=== PATIENT | female | born 1970 | race Caucasian/White ===

== ENCOUNTER 2022-01-30 11:16 | Outpatient (CLI) | payer BC, SELFPAY ==
--- NOTE | 2022-01-30 11:15 | CRLHL7_ITS ---
For Patients: As a result of the Century Cures Act, medical imaging exams and procedure reports are released immediately into your electronic medical record. You may view this report before your referring provider. If you have questions, please contact your health care provider. CLINICAL HISTORY: : Left axillary pain COMPARISON: None TECHNIQUE: Real-time ultrasound imaging of left axilla with imaging documentation. FINDINGS: Targeted sonogram left axilla performed. Multiple morphologically normal lymph nodes are present within the left axilla containing normal central fatty delon and normal internal vascularity. The hypoechoic cortex is thin measuring less than 3 millimeters. No suspicious lymph nodes are present. The lymph nodes measure up to 2.4 x 1.2 x 2.6 cm. IMPRESSION: Multiple morphologically normal lymph nodes within the left axilla without suspicion for malignancy. Given the history of left axillary pain and left hip pain with negative targeted left axillary ultrasound and negative radiographs of the pelvis and left hip, a CT-PET scan may be useful in the setting of prior breast cancer. RECOMMENDATIONS: Results and recommendations were discussed with the patient at the time of the exam. BI-RADS: Dictated by Steven Aguirre MD @ 01/30/2022 12:12:17 PM (Electronically Signed)
--- NOTE | 2022-01-30 12:00 | CRLHL7_ITS ---
For Patients: As a result of the Cures Act, medical imaging exams and procedure reports are released immediately into your electronic medical record. You may view this report before your referring provider. If you have questions, please contact your health care provider. Indication: Hip pain Technique: Pelvis and left hip 3 views Comparison: None Findings: Spurring at the left hip joint noted. Incidental synovial herniation pit noted within the superolateral femoral neck related to degenerative joint disease/chronic impingement. Spurring at the symphysis pubis. Intact sacroiliac joints. No suspicious lesion. No periostitis or fracture. Impression: Degenerative joint disease. No fracture or suspicious lesion. Dictated by Steven Aguirre MD @ 01/30/2022 12:08:59 PM (Electronically Signed)
== END 2022-01-30 11:17 | disposition home or self-care (01) ==
LOC: US 11:16
PROVIDERS: PCP Family Medicine; Visit Provider Nurse Practitioner Family
DX: M25.552 Pain in left hip (principal); M16.12 Unilateral primary osteoarthritis, left hip; M79.622 Pain in left upper arm; Z85.3 Personal history of malignant neoplasm of breast
CPT/HCPCS: 73502; 76882

== ENCOUNTER 2022-02-10 19:08 | Emergency (ER) | payer BC, SELFPAY ==
[2022-02-10 20:00] VITALS: BP 136/66; PULSE 113; RESP 20; TEMP 37.4; O2SAT 97; BMI 32.6
[2022-02-10 20:12] LABS: Appearance Urine Clear (Clear); Bilirubin Urine Negative (Negative); Blood Urine Negative (Negative); Color Urine Yellow (Yellow); Glucose Urine Negative (Negative); Ketones Urine Trace (Negative); Leukocyte Esterase Urine Negative (Negative); Nitrite Urine Negative (Negative); Protein Urine Negative (Negative); Specific Gravity Urine >= 1.030 (1.000-1.030); Urobilinogen Urine 0.2 (0.2-1.0); pH Urine 5.5 (5.0-8.5)
[2022-02-10 20:36] LABS: Bacteria Urine Moderate; Squamous Epithelial Cell Urine Moderate (None-Few)
[2022-02-10 20:49] LABS: PCR FLU A Negative PCR FLU A (Negative); PCR FLU B Negative PCR FLU B (Negative); PCR RSV Negative PCR RSV (Negative)
--- NOTE | 2022-02-10 20:53 | ED_ITS ---
HPI - Fever General Time Seen by Provider: 20:53 Date Seen: 02/10/22 Chief Complaint: Fever Stated Complaint: Lower back pain, Temp 102 Time Seen by Provider: 02/10/22 20:51 Source: patient, RN notes reviewed and old records reviewed Mode of arrival: ambulatory Limitations: no limitations History of Present Illness HPI Narrative: Julianna is a very pleasant 52-year-old female with a history of frequent UTI, breast cancer comes to the emergency room for evaluation regarding low back pain in fever. Patient notes that she experienced the onset of some low back dis comfort last night and thought this was likely from bladder infection which she gets frequently. However, she states today she has full body aches at this time. She states that she is absolutely exhausted is they have been standing visual by her father side and he last night. Today she is quite exhausted and states that she is very run down. This evening she started running a fever up to 103. She did take ibuprofen prior to coming into the ER. She notes pain in her low back. She does states that she has had urine infections in the past that did not necessarily show up on a urine test. Patient has not been coughing but does complain of a mild sore throat and bilateral ear pain. She has not had a runny nose. She has not had vomiting or diarrhea. She is vaccinated against COVID. Related Data Home Medications Medication Instructions Recorded Confirmed albuterol 90 mcg/actuation aerosol mcg inhalation PRN 01/19/22 01/19/22 inhaler fluticasone propionate 50 1 spray intranasal QDAY 01/19/22 02/10/22 mcg/actuation nasal spray,suspension (Flonase Allergy Relief) levothyroxine 100 mcg capsule 100 mcg PO QDAY 01/19/22 01/19/22 oxybutynin chloride 5 mg tablet 5 mg PO BID 01/19/22 02/10/22 quetiapine 25 mg tablet (Seroquel) 25 mg PO QAM 01/19/22 02/10/22 quetiapine 400 mg tablet (Seroquel) 400 mg PO QHS 01/19/22 02/10/22 spironolactone 25 mg tablet 50 mg PO QDAY 01/19/22 01/19/22 valacyclovir 1 gram tablet 1,000 mg PO QDAY PRN 01/19/22 01/19/22 albuterol sulfate 90 mcg/actuation 2 inh inhalation Q6H PRN 02/10/22 02/10/22 aerosol inhaler bupropion HCl 150 mg 24 hr tablet, 150 mg PO QAM 02/10/22 02/10/22 extended release cetirizine 10 mg tablet (24Hour 10 mg PO DAILY PRN 02/10/22 02/10/22 Allergy) escitalopram oxalate 20 mg tablet 20 mg PO DAILY 02/10/22 02/10/22 (Lexapro) levothyroxine 88 mcg tablet 88 mcg PO QAM 02/10/22 02/10/22 lorazepam 1 mg tablet 1 mg PO DAILY PRN 02/10/22 02/10/22 naltrexone 50 mg tablet 25 mg PO DAILY 02/10/22 02/10/22 pantoprazole 40 mg tablet,delayed 40 mg PO DAILY 02/10/22 02/10/22 release (Protonix) phentermine 37.5 mg tablet 37.5 mg PO DAILY 02/10/22 02/10/22 (Adipex-P) semaglutide 0.25 mg or 0.5 mg (2 0.25 mg subcut QWEEK 02/10/22 02/10/22 mg/1.5 mL) subcutaneous pen injector (Ozempic) spironolactone 50 mg tablet 50 mg PO DAILY 02/10/22 02/10/22 (Aldactone) valacyclovir 1 gram tablet 2,000 mg PO BID 02/10/22 02/10/22 (Valtrex) Previous Rx's Medication Instructions Recorded ciprofloxacin HCl 500 mg tablet 500 mg PO BID #10 tabs 01/19/22 fluconazole 150 mg tablet 150 mg PO DAILY 1 dose #2 tabs 02/10/22 (Diflucan) nirmatrelvir 300 mg (150 mg See Rx Instructions PO .COMPLEX 02/10/22 x2)-ritonavir 100 mg tablet,dose #30 ea pack(EUA) (Paxlovid) Allergies Allergy/AdvReac Type Severity Reaction Status Date / Time Quinolones Allergy Severe Hives Verified 01/19/22 15:12 sulfamethoxazole Allergy Severe Hives Verified 02/10/22 21:03 [From Bactrim] trimethoprim [From Bactrim] Allergy Severe Hives Verified 02/10/22 21:03 Sulfa (Sulfonamide Allergy Intermediate Hives Verified 02/10/22 21:03 Antibiotics) ciprofloxacin [From Cipro] Allergy Mild Hives Verified 02/10/22 21:03 Quinazolinones Allergy Mild Hives Verified 02/10/22 21:03 amoxicillin [From Augmentin] AdvReac Mild yeast Verified 02/10/22 21:03 infection clavulanic acid AdvReac Mild yeast Verified 02/10/22 21:03 [From Augmentin] infection hydrocodone AdvReac Mild Nausea Verified 02/10/22 21:03 morphine AdvReac Mild Nausea Verified 02/10/22 21:03 Review of Systems Status of ROS Reports: 6 or more systems reviewed and unremarkable except as noted in History and below Const Reports: fever, chills and fatigue ENMT Reports: throat pain (Mild); Denies: neck pain, throat swelling or difficulty swallowing Cardio Denies: chest pain, swelling of feet/ankles or shortness of breath with exertion Resp Denies: shortness of breath or cough GI Reports: nausea and vomiting; Denies: abdominal pain or difficulty swallowing Denies: painful urination, urinary frequency or urinary urgency Musculo Denies: neck pain Endo Reports: fatigue Allergy/Immuno Denies: throat swelling PFSH PFSH Medical History (Updated 02/10/22 @ 22:24 by Brandee Ray, ARLYN) Anxiety Asthma Benign lipomatous neoplasm of kidney Benign neoplasm of colon Bipolar disorder, unspecified Bulge of lumbar disc without myelopathy Cancer CHEK2-related breast cancer Depression GERD (gastroesophageal reflux disease) Graves disease Lateral epicondylitis of right elbow Mastitis Positive SYLVIA (antinuclear antibody) Pulmonary nodules Pyelonephritis Sarcoidosis of lung Surgical History (Updated 02/10/22 @ 22:24 by Brandee Ray RN) H/O bilateral mastectomy H/O nasal septoplasty H/O: hysterectomy History of removal of calculus of renal pelvis through percutaneous nephrostomy History of salpingo-oophorectomy Hx of cholecystectomy S/P silicone breast implant Exam Narrative Exam Narrative: Patient is alert and oriented. She is lying on her side in exam room 7. Her eyes are clear as his her oral cavity Goran. Posterior oropharynx without erythema. Right TM within normal limits. Left TM is with some erythema and some slight bulging at the posterior superior aspect. Neck is supple without lymphadenopathy heart with regular rate and rhythm lungs are clear in all lung jin abdomen is soft nontender no significant point tenderness noted in the lower spine. Moving all extremities. Const Vital Signs, click to edit/add: Vital Signs - 24 hr 02/10/22 20:00 02/10/22 21:19 Temperature 99.3 F 101.8 F H Pulse Rate [Left Pulse Oximeter] 113 H Respiratory Rate 20 Blood Pressure [Right Upper Arm] 136/66 Pulse Oximetry 97 Oxygen Delivery Method Room Air Documenting provider has reviewed patient's vital signs: yes Course Vital Signs Vital signs: Initial Vital Signs Temperature 99.3 F 02/10/22 20:00 Temperature Source Temporal Artery Scan 02/10/22 20:00 Pulse Rate 113 H 02/10/22 20:00 Respiratory Rate 20 02/10/22 20:00 Blood Pressure 136/66 02/10/22 20:00 Blood Pressure Mean 89 02/10/22 20:00 Blood Pressure Position Sitting 02/10/22 20:00 Pulse Oximetry 97 02/10/22 20:00 Oxygen Delivery Method 02/10/22 20:00 Vital Signs Temperature 99.3 F 02/10/22 20:00 Pulse Rate 113 H 02/10/22 20:00 Respiratory Rate 20 02/10/22 20:00 Blood Pressure 136/66 02/10/22 20:00 Pulse Oximetry 97 02/10/22 20:00 Oxygen Delivery Method 02/10/22 20:00 Temperature 101.8 F H 02/10/22 21:19 Pulse Rate 113 H 02/10/22 20:00 Respiratory Rate 20 02/10/22 20:00 Blood Pressure 136/66 02/10/22 20:00 Pulse Oximetry 97 02/10/22 20:00 Oxygen Delivery Method 02/10/22 20:00 MDM - Fever MDM Narrative Medical decision making narrative: 1. COVID-patient has no hypoxia but does have a cough. At this time she is within treating guidelines for Paxlovid. Did cross reference it with her medications and she will need to discontinue Seraquel as well as oxybutynin tonight. She will not restart these medications until 3 days have passed since her last dose of the antiviral. Patient is informed that she will need to try to sleep on her side or prone. She does have a history of asthma but lung sounds are clear tonight and oxygenation is reassuring. She will need to be quarantine for 5 days but may return to work on WednesdayFebruary 16 wearing a mask for the subsequent 4 days if she has improvement of her symptoms. 2. Left otitis media-will treat with Augmentin 875 p.o. b.i.d. x7 days. 3. Back pain-I do believe this most likely stems from COVID but patient is worried that she has a urinary tract infection as she has felt this way before. I did include sure her that augmented would also work on a UTI but we will await the culture. 4. Disposition-prior to discharge patient received Toradol 30 mg IM for discomfort. Would recommend continuing Tylenol ibuprofen as needed for pain. Course worsening symptoms she will need to return to the emergency room. Medical Records Attestation: I reviewed the patient's medical records. Lab Data Attestation: I reviewed the patient's lab results. Labs: Lab Results 02/10/22 02/10/22 Range/Units 20:04 20:04 Urine Color Yellow (Yellow) Urine Appearance Clear (Clear) Urine pH 5.5 (5.0-8.5) Ur Specific [place] >= 1.030 (1.000-1.030) Urine Protein Negative (Negative) Urine Glucose (UA) Negative (Negative) Urine Ketones Trace A (Negative) Urine Blood Negative (Negative) Urine Nitrite Negative (Negative) Urine Bilirubin Negative (Negative) Urine Urobilinogen 0.2 (0.2-1.0) Ur Leukocyte Esterase Negative (Negative) Urine RBC 2-5 A (0-2) Urine WBC 2-5 (0-5) Ur Squamous Epith Cells Moderate A (None-Few) Urine Bacteria Moderate A (None) SARS-CoV-2 (PCR) POSITIVE SARS-CoV-2 A (Negative) Influenza Type A (PCR) Negative PCR FLU A (Negative) Influenza Type B (PCR) Negative PCR FLU B (Negative) RSV (PCR) Negative PCR RSV (Negative) Discharge Plan Discharge Clinical Impression: Acute left otitis media, COVID Patient Disposition: Home, Self-Care Condition: Improved Instructions: COVID-19 (Coronavirus Disease 2019) (ED) Additional Instructions: 1. COVID-suggest use of Paxlovid for treatment of COVID. This is an antiviral medication. It may leave a bad taste in your mouth. You should note improvement of your symptoms in the next 48 hours. If you are having a hard time breathing, vomiting and dehydration please return for further evaluation. You were quarantine for 5 days. Thereafter may return to work for an additional 5 days of masking. This is only if your symptoms are improving. 2. Ear infection-we will use Augmentin for treatment of your ear infection. I will put this in instant meds. This should also cover any urine infection although I do not think there is an infection today. However, I will send your urine for a culture. 3. Return to the emergency room with difficulty breathing. Recommend sleeping on your side or on your stomach. Alternate ibuprofen and Tylenol as needed for discomfort. Rest and push fluids. Stop your Seroquel, oxybutynin, valacyclovir now. Do not resume any of these medications until 3 days have passed after your last dose of Paxlovid Prescriptions: New fluconazole [Diflucan] 150 mg tablet 150 mg PO DAILY Qty: 2 0RF Rx Instructions: Take 1 tablet as needed for yeast infection from antibiotics. Two doses are available to you. Paxlovid (EUA) 300 mg (150 mg x 2)-100 mg tablets,dose pack See Rx Instructions .ROUTE .COMPLEX Qty: 30 0RF Rx Instructions: take TWO 150 mg tablets of nirmatrelvir with ONE 100 mg tablet of ritonavir twice daily for 5 days No Action albuterol 90 mcg/actuation aerosol inhalation PRN levothyroxine 100 mcg capsule 100 mcg PO QDAY oxybutynin chloride 5 mg tablet 5 mg PO BID quetiapine [Seroquel] 25 mg tablet 25 mg PO QAM quetiapine [Seroquel] 400 mg tablet 400 mg PO QHS valacyclovir 1 gram tablet 1,000 mg PO QDAY PRN spironolactone 25 mg tablet 50 mg PO QDAY fluticasone propionate [Flonase Allergy Relief] 50 mcg/actuation spray,suspension 1 spray intranasal QDAY Rx Instructions: administer into each nostril ciprofloxacin HCl 500 mg tablet 500 mg PO BID Qty: 10 0RF phentermine [Adipex-P] 37.5 mg tablet 37.5 mg PO DAILY Rx Instructions: must administer 30 minutes before or 1-2 hours after breakfast naltrexone 50 mg tablet 25 mg PO DAILY pantoprazole [Protonix] 40 mg tablet,delayed release (DR/EC) 40 mg PO DAILY spironolactone [Aldactone] 50 mg tablet 50 mg PO DAILY valacyclovir [Valtrex] 1 gram tablet 2,000 mg PO BID Ozempic 0.25 mg or 0.5 mg(2 mg/1.5 mL) pen injector 0.25 mg subcut QWEEK Rx Instructions: for 4 doses bupropion HCl 150 mg tablet extended release 24 hr 150 mg PO QAM Label Comments: TAKE 1 TABLET BY MOUTH EVERY DAY IN THE MORNING cetirizine [24Hour Allergy] 10 mg tablet 10 mg PO DAILY PRN albuterol sulfate 90 mcg/actuation HFA aerosol inhaler 2 inh inhalation Q6H PRN levothyroxine 88 mcg tablet 88 mcg PO QAM Label Comments: TAKE 1 TABLET (88 MCG) BY MOUTH BEFORE BREAKFAST. lorazepam 1 mg tablet 1 mg PO DAILY PRN escitalopram oxalate [Lexapro] 20 mg tablet 20 mg PO DAILY Follow Up/Referrals: Chiara Das MD [Primary Care Provider] - Stand Alone Forms: [facility] Info Instructions
[2022-02-10 20:57] LABS: SARS PCR* POSITIVE SARS-CoV-2 (Negative)
--- OUTSIDE RECORDS SUMMARY | 2022-02-10 21:00 | XMS_ITS | Encounter Summary ---
:1970 Author Organization [facility] Address [address] [place] [id number] Care Team Providers Name Role Phone Chiara aDs Primary Care Provider Encounter Details Date Type Department Care Team Description 07/31/2021 Travel Social History Tobacco Use Types Packs/Day Years Used Date Smoking Tobacco: Some Days Smokeless Tobacco: Current Alcohol Use Standard Drinks/Week Comments Not Asked 0 (1 standard drink = 0.6 oz pure alcoho l) rarely Sex Assigned at Date Recorded Not on file COVID-19 Exposure Response Date Recorded In the last 10 days, have you been in contact with No / Unsu re 07/31/2021 9:34 AM CDT someone who was confirmed or suspected to have Coronavirus/COVID-19? documented as of this encounter Plan of Treatment Not on filedocumented as of this encounter Visit Diagnoses Not on filedocumented in this encounter Care Teams Economic Analyst Relationship Specialty Start Date End Date Chiara Das PCP - General Family Medicine 07/31/[address] [place], [place] [id number] documented as of this encounter
--- OUTSIDE RECORDS SUMMARY | 2022-02-10 21:00 | XMS_ITS | Clinical Summary ---
:1970 Author Organization [facility] Address [address] [place] [id number] Care Team Providers Name Role Phone Chiara Das Primary Care Provider Allergies Active Allergy Reactions Severity Noted Date Comments Augmentin 07/30/2021 Sulfamethoxazole W/Trimethoprim Hives 2 Hydrocodone Nausea 07/30/2021 Quinolones Hives 07/30/2021 Sulfa Drugs Hives 07/03/2021 Medications Medication Sig Dispensed Refills Start Date End Date Status albuterol (PROAIR Inhale 1-2 puffs 0 Active HFA/PROVENTIL into the lungs HFA/VENTOLIN HFA) 108 every 6 hours as (90 Base) MCG/ACT needed for inhaler shortness of breath / dyspnea or wheezing aluminum chloride Apply topically 0 Active (DRYSOL) 20 % external At Bedtime solution benzonatate (TESSALON) Take 100 mg by 0 Active 100 MG capsule mouth 3 times daily as needed for cough buPROPion (WELLBUTRIN Take 150 mg by 0 Active XL) 150 MG 24 hr tablet mouth every morning cyclobenzaprine Take 5-10 mg by 0 Active (FLEXERIL) 5 MG tablet mouth 3 times daily as needed for muscle spasms escitalopram (LEXAPRO) Take 20 mg by 0 Active 20 MG tablet mouth daily fluticasone (FLONASE) [place] 1 spray 0 Active 50 MCG/ACT nasal spray into both nostrils daily as needed for rhinitis or allergies levothyroxine Take 88 mcg by 0 A ctive (SYNTHROID/LEVOTHROID) mouth daily 88 MCG tablet before breakfast LORazepam (ATIVAN) 1 MG Take 1 mg by 0 Active tablet mouth every 6 hours as needed for anxiety naltrexone Take 25 mg by 0 Activ e (DEPADE/REVIA) 50 MG mouth daily (0.5 tablet x 50 mg = 25 mg) oxybutynin (DITROPAN) 5 Take 5 mg by 0 Active MG tablet mouth 2 times daily pantoprazole (PROTONIX) Take 40 mg by 0 Active 40 MG EC tablet mouth daily QUEtiapine (SEROQUEL) Take 300-400 mg 0 Active 100 MG tablet by mouth At Bedtime QUEtiapine (SEROQUEL) Take 25 mg by 0 Active 25 MG tablet mouth every morning spironolactone Take 50 mg by 0 A ctive (ALDACTONE) 50 MG mouth daily tablet valACYclovir (VALTREX) Take 2,000 mg by 0 Active 1000 mg tablet mouth 2 times daily senna-docusate Take 1-2 tablets 20 tablet 0 07/31/2021 Active (SENOKOT-S/PERICOLACE) by mouth 2 times 8.6-50 MG daily tabletIndications: Status post breast reconstruction oxyCODONE (ROXICODONE) Take 1-2 tablets 15 tablet 0 07/31/2021 Active 5 MG tabletIndications: (5-10 mg) by Status post breast mouth every 4 reconstruction hours as needed for moderate to severe pain Social History Tobacco Use Types Packs/Day Years Used Date Smoking Tobacco: Some Days Smokeless Tobacco: Current Alcohol Use Standard Drinks/Week Comments Not Asked 0 (1 standard drink = 0.6 oz pure alcoho l) rarely Sex Assigned at Date Recorded Not on file Last Filed Vital Signs Vital Sign Reading Time Taken Comments Blood Pressure 137/85 07/31/2021 4:17 PM CDT Pulse 85 07/31/2021 4:17 PM CDT Temperature 36.6 ??C (97.9 ??F) 07/31/2021 4:17 PM CDT Respiratory Rate 16 07/31/2021 4:17 PM CDT Oxygen Saturation 98% 07/31/2021 4:17 PM CDT Inhaled Oxygen Concentration - - Weight 81.1 kg (178 lb 11.2 oz) 07/31/2021 10:00 AM CDT Height 160 cm (5' 3) 07/31/2021 10:00 AM CDT Body Mass Index 31.66 07/31/2021 10:00 AM CDT Plan of Treatment Health Maintenance Due Date Last Done Comments ADVANCE CARE PLANNING 1970 ANNUAL REVIEW OF HM ORDERS 1970 CT COLONOGRAPHY 1972 FIT-DNA (Cologuard) 1972 FIT 1972 FLEX SIG 1970 HEPATITIS B IMMUNIZATION (1 1972 of 3 - 3-dose series) NICOTINE/TOBACCO CESSATION 1972 COUNSELING Q 1 YR YEARLY PREVENTIVE VISIT 1970 Pneumococcal Vaccine: 01/12/1978 Pediatrics (0 to 5 Years) and At-Risk Patients (6 to 64 Years) (1 - PCV) COLONOSCOPY 01/12/1982 COLORECTAL CANCER SCREENING 01/12/1982 HIV SCREENING 01/12/1987 HEPATITIS C SCREENING 01/12/1990 PAP 01/12/1993 PHQ-2 (once per calendar 03/01/2021 year) COVID-19 Vaccine (4 - Booster 04/25/2021 02/28/2021, for Pfizer series) 06/15/2020, 05/25/2020 INFLUENZA VACCINE (#1) 2021 11/19/2020, 01/17/2020, 12/16/2018 DTAP/TDAP/TD IMMUNIZATION (3 01/12/2022 2012, - Td or Tdap) 03/28/2010 ZOSTER IMMUNIZATION (1 of 2) 01/12/2022 LIPID 07/16/2026 07/16/2021 IPV IMMUNIZATION Aged Out No longer eligi ble based on patient's age to complete this to [facility] MENINGITIS IMMUNIZATION Aged Out No longe r eligible based on patient's age to complete this to [facility] Insurance Payer Benefit Plan / Subscriber ID Effective Dates Phone Addre ss Type Group BCBS BCBS OUT OF [id number] 2020-Present [phone] [address] [address] [place] [address] Care Teams Roustabout Crew Leader Relationship Specialty Start Date End Date Chiara Das PCP - General Family Medicine 07/31/21 [address] [place] [address]
--- OUTSIDE RECORDS SUMMARY | 2022-02-10 21:00 | XMS_ITS | Encounter Summary ---
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] Sh Periop Se rvices Procedures HC GRAFTING OF AUTOLOGOUS FAT BY LIPO 50 CC OR LESS BILATERAL BREAST FAT GRAFTING - DONOR SITE ABDOMEN [address] [place] [address] Phone: Referral ID Status Reason Start Date Expiration Date Visits Requ ested Visits Authorized [id number] 1 1 Encounter Details Date Type Department Care Team Description 07/31/2021 Surgery [facility] Jae Mejia MD BILATERAL BREAST [facility] - DONOR SITE Services [address] [facility] ABDOMEN [address] [place] [address] [place] [address] [phone] Surgery Details Date/Time Status Location OR Service Patient Case Case Traum a Class Class Type Case? 07/31/21 11:40 Posted OR OR [facility] AM 40 Reconstruction Surgery Panel 1 Procedure [facility] Anes Op Region Wound Class Commen ts BILATERAL BREAST FAT GRAFTING - Bilateral General Update I-Cl joni DONOR SITE ABDOMEN Surgeon Surgeon Role Service Panel Tracy Mejia MD Primary Plastics & Reconstruction 1 Eduarda Whitfield PA-C Assisting 1 documented in this encounter Social History Tobacco Use Types Packs/Day Years [...] have Coronavirus/COVID-19? documented as of this encounter Last Filed Vital Signs Vital Sign Reading Time Taken Comments Blood Pressure 132/80 07/31/2021 11:11 AM CDT Pulse 87 07/31/2021 11:07 AM CDT Temperature 36.6 ??C (97.9 ??F) 07/31/2021 10:00 AM CDT Respiratory Rate 18 07/31/2021 11:11 AM CDT Oxygen Saturation 96% 07/31/2021 11:11 AM CDT Inhaled Oxygen Concentration - - Weight 81.1 kg (178 lb 11.2 oz) 07/31/2021 10:00 AM CDT Height 160 cm (5' 3) 07/31/2021 10:00 AM CDT Body Mass Index 31.66 07/31/2021 10:00 AM CDT documented in this encounter Discharge Instructions Discharge InstructionsVioleta Looney RN - 07/31/2021 2:14 PM CDT Same Day Surgery Discharge Instructions for Sedation and General Anesthesia It's not unusual to feel dizzy, light-headed or faint for up to 24 hours after surgery or while taking pain medication. If you have these symptoms: sit for a few minutes before standing and have someone assist you when you get up to walk or use the bathroom. You should rest and relax for the next 24 hours. We recommend you make arrangements to have an adultstay with you for at least 24 hours after your discharge. Avoid hazardous and strenuous activity. DO NOT DRIVE any vehicle or operate mechanical equipment for 24 hours following the end of your surgery. Even though you may feel normal, your reactions may be affected by the medication you have received. Do not drink alcoholic beverages for 24 hours following surgery. Slowly progress to your regular diet as you feel able. It's not unusual to feel nauseated and/or vomit after receiving anesthesia. If you develop these symptoms, drink clear liquids (apple juice, anna sushant, broth, 7-up, etc. ) until you feel better. If your nausea and vomiting persists for 24 hours, please notify your surgeon. All narcotic pain medications, along with inactivity and anesthesia, can cause constipation. Drinking plenty of liquids and increasing fiber intake will help. For any questions of a medical nature, call your surgeon. Do not make important decisions for 24 hours. If you had general anesthesia, you may have a sore throat for a couple of days related to the breathing tube used during surgery. You may use Cepacol lozenges to help with this discomfort. If it worsens or if you develop a fever, contact your surgeon. If you feel your pain is not well managed with the pain medications prescribed by your surgeon, please contact your surgeon's office to let them know so they can address your concerns. CoVid 19 Information We want to give you information regarding Covid. Please consult your primary care provider with any questions you might have. Patient who have symptoms (cough, fever, or shortness of breath), need to isolate for 7 days from when symptoms started OR 72 hours after fever resolves (without fever reducing medications) AND improvement of respiratory symptoms (whichever is longer). Isolate yourself at home (in own room/own bathroom if possible) Do Not allow any visitors Do Not go to work or school Do Not go to pentecostal, child development specialist centers, shopping, or other public places. Do Not shake hands. Avoid close and intimate contact with others (hugging, kissing). Follow CDC recommendations for household cleaning of frequently touched services. After the initial 7 days, continue to isolate yourself from household members as much as possible. To continue decrease the risk of community spread and exposure, you and any members of your household should limit activities in public for 14 days after starting home isolation. You can reference the following CDC link for helpful home isolation/care tips: https://www.cdc.gov/coronavirus/2019-ncov/downloads/10Things.pdf Protect Others: Cover Your Mouth and Nose with a mask, disposable tissue or wash cloth to avoid spreading germs to others. Wash your hands and face frequently with soap and water Call Your Primary Doctor If: Breathing difficulty develops or you become worse. For more information about COVID19 and options for caring for yourself at home, please visit the CDCwebsite at https://www.cdc.gov/coronavirus/2019-ncov/about/smjtc-osvf-gnkq.html For more options for care at [facility], please visit our website at [email or web address] If you have questions or concerns about your procedure, call Dr. Mejia at [phone]. documented in this encounter Medications at Time of Discharge Medication Sig Dispensed Refills Start Date End Date albuterol (PROAIR Inhale 1-2 puffs 0 HFA/PROVENTIL HFA/VENTOLIN into the lungs HFA) 108 (90 Base) MCG/ACT every 6 hours as inhaler needed for shortness of breath / dyspnea or wheezing aluminum chloride (DRYSOL) Apply topically At 0 20 % external solution Bedtime benzonatate (TESSALON) 100 Take 100 mg by 0 MG capsule mouth 3 times daily as needed for cough buPROPion (WELLBUTRIN XL) Take 150 mg by 0 150 MG 24 hr tablet mouth every morning cyclobenzaprine (FLEXERIL) Take 5-10 mg by 0 5 MG tablet mouth 3 times daily as needed for muscle spasms escitalopram (LEXAPRO) 20 Take 20 mg by mouth 0 MG tablet daily fluticasone (FLONASE) 50 [place] 1 spray into 0 MCG/ACT nasal spray both nostrils daily as needed for rhinitis or allergies levothyroxine Take 88 mcg by 0 (SYNTHROID/LEVOTHROID) 88 mouth daily before MCG tablet breakfast LORazepam (ATIVAN) 1 MG Take 1 mg by mouth 0 tablet every 6 hours as needed for anxiety naltrexone (DEPADE/REVIA) Take 25 mg by mouth 0 50 MG tablet daily (0.5 x 50 mg = 25 mg) oxybutynin (DITROPAN) 5 MG Take 5 mg by mouth 0 tablet 2 times daily oxyCODONE (ROXICODONE) 5 Take 1-2 tablets 15 tablet 0 07/31 MG tabletIndications: (5-10 mg) by mouth Status post breast every 4 hours as reconstruction needed for moderate to severe pain pantoprazole (PROTONIX) 40 Take 40 mg by mouth 0 MG EC tablet daily QUEtiapine (SEROQUEL) 100 Take 300-400 mg by 0 MG tablet mouth At Bedtime QUEtiapine (SEROQUEL) 25 Take 25 mg by mouth 0 MG tablet every morning senna-docusate Take 1-2 tablets by 20 tablet 0 07/31/2021 (SENOKOT-S/PERICOLACE) mouth 2 times daily 8.6-50 MG tabletIndications: Status post breast reconstruction spironolactone (ALDACTONE) Take 50 mg by mouth 0 50 MG tablet daily valACYclovir (VALTREX) Take 2,000 mg by 0 1000 mg tablet mouth 2 times daily doxycycline monohydrate Take 1 tablet (100 14 tablet 0 04/202108/07/2021 (ADOXA) 100 MG mg) by mouth 2 tabletIndications: Status times daily for 7 post breast reconstruction days documented as of this encounter H&P Notes Dylan Santos MD - 07/31/2021 11:08 AM CDT I have reviewed the surgical (or preoperative) H&P that is linked to this encounter, and examined the patient. There are no significant changes Source Note - Martin, Provider - 07/29/2021 5:39 AM CDT documented in this encounter Nursing Notes Violeta Looney RN - 07/31/2021 3:34 PM CDT Pt dressed, up in recliner and transported to Phase 2. Patient very sleepy throughout PACU stay but continues to rate pain quite high.. IM Vistaril given to help pain as well. Salome Goodson RN - 07/31/2021 1:41 PM CDT TUMESCENT AMOUNT - 810cc FAT INJECTED: LEFT BREAST 70cc RIGHT BREAST 80cc Winnie Pitts RN - 07/31/2021 11:14 AM CDT Pt requesting medication to relax prior to surgery. Dr. Santos went in to see patient and to evaluate. Versed 1 mg ordered. Pt moved to recovery room 16, to be put on monitor after versed administration. documented in this encounter Miscellaneous Notes Op Note - Tracy Mejia MD - 07/31/2021 1:37 PM CDT Procedure Date: 07/31/2021 PREOPERATIVE DIAGNOSES: 1. Personal history of breast cancer, status post bilateral mastectomies and prepectoral implant breast reconstruction. 2. Deformity of reconstructed breasts. POSTOPERATIVE DIAGNOSES: 1. Personal history of breast cancer, status post bilateral mastectomies and prepectoral implant breast reconstruction. 2. Deformity of reconstructed breasts. PROCEDURE PERFORMED: Bilateral breast fat grafting, donor site abdomen (total harvested 170 mL, total grafted right breast 80 mL, left breast 70 mL). DRAINAGE TYPE: None. SURGEON: Tracy Mejia MD LATH HAND: LANE Hawkins PA-C, was present and scrubbed for the entire procedure and assisted with dissection, retraction and closure. There were no other qualified trainees or other assistants available and the presence of Brittney Whitfield PA-C was necessary due to inability to retract and dissect without an assistant community manager. INDICATION: The patient is a 51-year-old female with a personal history of breast cancer. She underwent bilateral mastectomies and prepectoral implant breast reconstruction with AlloDerm. She has developed some contour deformities on both sides, which may be corrected with fat grafting. A written, witnessed, informed consent had been obtained preoperatively. DESCRIPTION OF PROCEDURE: The patient was identified and marked in the preoperative holding area. She was taken to the operating room and placed supine on the operating table. Sequential compression devices were applied to the lower extremities. After successful general anesthesia and endotracheal intu bation, the patient was prepared and draped in the usual sterile fashion. An intentional pause was then performed, confirming the patient's identity, the procedure to be performed, the laterality, the PATIENT'S ALLERGIES, and the administration of the necessary antibiotics by Anesthesia. I turned my attention to the abdomen where 2 small stab incisions were made with an 11 blade at 2 o'clock and 11 o'clock. Tumescent solution was infiltrated subcutaneously on the upper and lower abdomen. After having waited 7 minutes, I proceeded to perform liposuction of these areas using a 4 mm Ellen tip liposuction cannula. The Veotag system was used to process the fat and, after processing, atotal of 170 mL of fat had been retrieved. The 2 incisions on the umbilicus were closed with deep dermal 4-0 Monocryl. The patient was then sat up and the contour deformities were assessed. On the right side, a small stab incision was made along the mastectomy scar and fat was grafted on the entire breast mound, paying special attention to the lower outer quadrant. On the left side, most of the 70 mLof fat was grafted in the upper inner and upper outer quadrant. In sitting position, symmetry was much improved. All incisions were closed with 4-0 Monocryl. The abdomen was covered with an island dressing, TopiFoam and an abdominal binder on the breasts. We placed Steri-Strips and ABD pads, and the patient was placed in a surgical bra. At the end of the procedure, all sponge, needle and instrument counts were correct. The patient was awakened and sent to the recovery room in satisfactory condition.I was present for the entire case. 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 Complications: None. Implants: * No implants in log * documented in this encounter Plan of Treatment Not on filedocumented as of this encounter Procedures Procedure Name Priority Date/Time Associated Diagnosis Comme nts FAT GRAFT, BREAST 07/31/2021 11:56 AM Malignant neopla sm of CDT breast (female) (H) Deformity of reconstructed breast LAB RESULT - HIM SCAN 07/16/2021 12:00 AM CDT documented in this encounter Results LAB RESULT - HIM SCAN (07/16/2021 12:00 AM CDT) Specimen (Source) Anatomical Location Collection Method / Collectio n Time Received Time / Laterality Volume 07/16/2021 Narrative This result has an attachment that is no t available. Provider Scan [facility] NON-BEAKER LAB TESTING documented in this encounter Visit Diagnoses Diagnosis Status post breast reconstruction - Prim shonda Breast replaced by other means Malignant neoplasm of breast (female) (H ) Malignant neoplasm of breast (female), u nspecified site Deformity of reconstructed breast documented in this encounter Administered Medications Inactive Administered Medications - up to 3 most recent administrations Medication Order MAR Action Action Date Dose Rate Site acetaminophen (TYLENOL) tablet Given 07/31/2021 10:14 AM CDT 1,0 00 mg 1,000 mg 1,000 mg, Oral, ONCE, On Modesta 07/31/21 at 1000, For 1 dose, Maximum acetaminophen dose from all sources = 75 mg/kg/day not to exceed 4 gram, Pre-procedure acetaminophen (TYLENOL) tablet 650 mg 650 mg, Oral, ONCE PRN, mild pain, to moderate pain, S tarting on Modesta 07/31/21 at 1402, One time prior to discharge. Maxim um acetaminophen dose from all sources = 75 mg/kg/day not to exceed 4 grams/day. EPINEPHrine (ADRENALIN) 1 Given 07/31/2021 12:47 PM 810 mLs Operative Site/Surgical mg, lidocaine 1 % 30 mL in CDT Site sodium chloride 0.9% (bag) 1,000 mL OR mixture PRN, Starting on Modesta 07/31/21 at 1247, Intra-procedure fentaNYL (PF) (SUBLIMAZE) injection 25 m cg Given 07/31/2021 2:17 PM CDT 25 mcg 25 mcg, Intravenous, EVERY 5 MIN PRN, moderate to severe pain, Starting on Modesta 07/31/21 at 1401, Administer fentaNYL (SUBLIMAZE) for acute pain control. Move to HYDROmorphone (DILAUDID): - IF patient has received up to 4 doses (100 mcg) of fentaNYL (SUBLIMAZE), OR - IF severe pain (pain score greater than or equal to seven (7) or inability of patient to participate in post op recovery due to pain) AFTER 2 doses fentaNYL (SUBLIMAZE). WAIT 5 minutes AFTER last fentaNYL (SUBLIMAZE) dose before administering HYDROmorphone (DILAUDID). Postop Anesthesia Phase I only. Notify Provider to assess for uncontrolled pain or analgesic side effects. Do NOT revert back to fentanyl (SUBLIMAZE) after moving to HYDROmorphone (DILAUDID)., PACU Given 07/31/2021 2:10 PM CDT 25 mcg gabapentin (NEURONTIN) tablet 600 mg Given 07/31/2021 10:14 AM CDT 600 mg 600 mg, Oral, ONCE, On Modesta 07/31/21 at 1000, For 1 dose, Pre-procedure HYDROmorphone (DILAUDID) injection 0.2 m g Given 07/31/2021 3:00 PM CDT 0.2 mg 0.2 mg, Intravenous, EVERY 5 MIN PRN, moderate to severe pain, Starting on Modesta 07/31/21 at 1401, Administer HYDROmorphone (DILAUDID) up to a total of 5 doses (1 mg) for moderate to severe pain. Notify Provider to assess for uncontrolled pain or analgesic side effects., PACU Given 07/31/2021 2:49 PM CDT 0.2 mg Given 07/31/2021 2:37 PM CDT 0.2 mg hydrOXYzine (VISTARIL) injection 25 mg Given 07/31/2021 3:21 PM CDT 25 mg 25 mg, Intramuscular, ONCE, On Modesta 07/31/21 at 1530, For 1 dose, *For IM use only* Administer deep in large muscle, PACU midazolam (VERSED) injection 1 mg Given 07/31/2021 12:26 PM CDT 2 mg 1 mg, Intravenous, EVERY 1 MIN PRN, anxiety, other, for nerve block/line placement procedures, Starting on Modesta 07/31/21 at 1106, For 2 doses, Give in preop PRN for nerve block/line placement procedures. Also may give for preop anxiety - please call anesthesiologist for approval PRIOR to administration. IF patient receives Versed, place patient on continuous pulse oximetry PRE OP. Max 2 mg. This drug may cause significant respiratory depression. Monitor respiratory status and vital signs carefully for 1 hour after each dose., Pre-procedure Given 07/31/2021 11:11 AM CDT 1 mg ondansetron (ZOFRAN ODT) ODT tab 4 mg 4 mg, Oral, ONCE PRN, nausea, vomiting, post-operative, Starting on Modesta 07/31/21 at 1402, For 1 dose, One time prior to discharge. With dr pacheco hands, peel back foil backing and gently remove tablet. Do not push oral disintegrating tablet through foil backing. Administer immediately on tongue and ora l disintegrating tablet dissolves in seconds, then swallow with saliva. Liquid not required. oxyCODONE (ROXICODONE) tablet 5 mg Given 07/31/2021 2:47 PM CDT 5 mg 5 mg, Oral, ONCE PRN, other, pain control or improvement in physical function.??, Starting on Modesta 07/31/21 at 1402, For 1 dose, Notify provider to assess for uncontrolled pain or analgesic side effects. oxyCODONE (ROXICODONE) tablet 5 mg Given 07/31/2021 4:00 PM CDT 5 mg 5 mg, Oral, ONCE, On Modesta 07/31/21 at 1630, For 1 dose, Phase ll documented in this encounter Active and Recently Administered Medications Times are shown in CDT. Scheduled Medication Order 07/29/2021 07/30/2021 07/31/2021 acetaminophen (TYLENOL) tablet 1,000 mg (COMPLETED) 1014 (Given - Provider: David Reynoso RN) 1,000 mg, Oral, ONCE, On Modesta 07/31/21 at 1 000, For 1 dose, Maximum acetaminophen dose from all sources = 75 mg/kg/day not to exceed 4 gram, Pre-procedure ceFAZolin Sodium (ANCEF) injection 2 g (COMPLETED) 1221 (Given - Provider: Vanesa Barboza APRN CRNA) Routine, 2 g, Intravenous, PRE-OP/PRE-NH OCEDURE, Starting on Modesta 07/31/21 at 0947, For 1 dose, Give first dose within 1 hour PRIOR to incision. If patient weight is greater than or equal to 120 kg increas e dose to 3 g., Indications: Perioperative Pharmacoprophylaxis, Pre-procedure gabapentin (NEURONTIN) tablet 600 mg (COMPLETED) 1014 (Given - Provider: David Reynoso RN) 600 mg, Oral, ONCE, On Modesta 07/31/21 at 1000, For 1 dose, Pre-proce dure hydrOXYzine (VISTARIL) injection 25 mg (COMPLETED) 1521 (Given - Provider: Violeta Looney, ARLYN) 25 mg, Intramuscular, ONCE, On Modesta 2 at 1530, For 1 dose, *For IM use only* Administer deep in large muscle, PACU oxyCODONE (ROXICODONE) tablet 5 mg (COMPLETED) 1600 (Given - Provider: Lori Reyes, ARLYN) 5 mg, Oral, ONCE, On Modesta 07/31/21 at 1630, For 1 dose, Phase ll Continuous Medication Order 07/29/2021 07/30/2021 07/31/2021 lactated ringers infusion (CANCELED) 1218 (New Bag - Provider: Vanesa Barboza APRN CRNA)1337 (Anesthesia Volume Adjustment - Provider: Vanesa Barboza APRN CRNA)1352 (Stopped - Provider: Vanesa Barboza APRN CRNA) at 10 mL/hr, Intravenous, CONTINUOUS, Pr e-procedure, Starting on Modesta 07/31/21 at 1130, Until Modesta 07/31/21 at 1350 PRN Medication Order 07/29/2021 07/30/2021 07/31/2021 acetaminophen (TYLENOL) tablet 650 mg 650 mg, Oral, ONCE PRN, mild pain, to mo derate pain, Starting on Modesta 07/31/21 at 1402, One time prior to discharge. Maximum acetaminophen dose from all sources = 75 mg/kg/day not to exceed 4 grams/day. EPINEPHrine (ADRENALIN) 1 mg, lidocaine 1 % 30 mL in sodium chloride 0.9% (bag) 1,000 mL OR mixture (CANCELED) 1247 (Giv en - Provider: Tracy Mejia MD) PRN, Starting on Modesta 07/31/21 at 1247, Intra-procedure fentaNYL (PF) (SUBLIMAZE) injection 25 mcg (CANCELED) 1410 (Given - Provider: Violeta Looney, RN)1417 (Given - Provider: Violeta Looney, RN) 25 mcg, Intravenous, EVERY 5 MIN PRN, mo derate to severe pain, Starting on Modesta 07/31/21 at 1401, Administer fentaNYL (SUBLIMAZE) for acute pain control. Move to HYDROmorphone (DILAUDID): - IF patient has received up to 4 doses (100 mcg) of fent aNYL (SUBLIMAZE), OR - IF severe pain (pain score greater than or equal to seven (7) or inability of patient to participate in post op recovery due to pain) AFTER 2 doses fentaNYL (SUBLIMAZE). WAIT 5 mi nutes AFTER last fentaNYL (SUBLIMAZE) dose before administering HYDROmorphone (DILAUDID). Postop Anesthesia Phase I only. Notify Provider to assess for uncontroll ed pain or analgesic side effects. Do NO T revert back to fentanyl (SUBLIMAZE) after moving to HYDROmorphone (DILAUDID)., PACU fentaNYL (PF) (SUBLIMAZE) injection 50 mcg (CANCELED) 1225 (Given - Provider: Vanesa Barboza APRN VP SITE) 50 mcg, Intravenous, EVERY 1 MIN PRN, mo derate to severe pain, for nerve block/line placement procedures, Starting on Modesta 07/31/21 at 1106, For 2 doses, Give in preop PRN for nerve block/line placement pr ocedures. Also may give for preop pain - please call anesthesiologist for approval PRIOR to administration. IF patient receives Fentanyl, place patient on continuous pulse oximetry PRE OP. Max 100 mcg., Pre-procedure HYDROmorphone (DILAUDID) injection 0.2 mg (CANCELED) 1422 (Given - Provider: Violeta Looney, RN)1437 (Given - Provider: Violeta Looney, ARLYN)1449 (Given - Provider: Violeta Looney RN)1500 (Given - Provider: Dee Cline RN) 0.2 mg, Intravenous, EVERY 5 MIN PRN, mo derate to severe pain, Starting on Modesta 07/31/21 at 1401, Administer HYDROmorphone (DILAUDID) up to a total of 5 doses (1 mg) for moderate to severe pain. Notify Pro vider to assess for uncontrolled pain or analgesic side effects. , PACU midazolam (VERSED) injection 1 mg (COMPLETED) 1111 (Given - Provider: Winnie Pitts RN)1226 (Given - Provider: Vanesa Barboza, SUPERVISOR [employer] VP SITE) 1 mg, Intravenous, EVERY 1 MIN PRN, anxi ety, other, for nerve block/line placement procedures, Starting on Modesta 07/31/21 at 1106, For 2 doses, Give in preop PRN for nerve block/line placement procedures. A lso may give for preop anxiety - please call anesthesiologist for approval PRIOR to administration. IF patient receives Versed, place patient on continuous pulse oximetry PRE OP. Max 2 mg. This drug may cause significant respiratory depressio n. Monitor respiratory status and vital signs carefully for 1 hour after each dose., Pre-procedure ondansetron (ZOFRAN ODT) ODT tab 4 mg 4 mg, Oral, ONCE PRN, nausea, vomiting, post-operative, Starting on Modesta 07/31/21 at 1402, For 1 dose, One time prior to discharge. With dry hands, peel back foil backing and gently remove tablet. Do not p ush oral disintegrating tablet through f oil backing. Administer immediately on tongue and oral disintegrating tablet dissolves in seconds, then swallow with saliva. Liquid not required. oxyCODONE (ROXICODONE) tablet 5 mg (COMPLETED) 1447 (Given - Provider: Violeta Looney, ARLYN) 5 mg, Oral, ONCE PRN, other, pain contro l or improvement in physical function.??, Starting on Modesta 07/31/21 at 1402, For 1 dose, Notify provider to assess for uncontrolled pain or analgesic side effects. documented in this encounter Care Teams Monitoring Analyst Relationship Specialty Start Date End Date Chiara Das PCP - General Family Medicine 07/31/21 [address] [place] [address] documented as of this encounter
--- OUTSIDE RECORDS SUMMARY | 2022-02-10 21:01 | XMS_ITS | Clinical Summary ---
:1970 Author Organization [employer] [facility] [place] [address] Care Team Providers Name Role Phone Chiara Das MD Primary Care Provider [phone] Allergies Active Allergy Reactions Severity Noted Date Comments Amoxicillin-Pot Clavulanate Yeast Infection 06/25/2021 Sulfamethoxazole-Trimethoprim Hives 02/18/2008 Ciprofloxacin Hives 02/20/2008 Hydrocodone Nausea Only 09/25/2014 Morphine Nausea Only 09/25/2014 Quinolones Hives 02/20/2008 Sulfa (Sulfonamide Antibiotics) Hives Medications Medication Sig Dispensed Refills Start End Status Date Date aluminum chloride Apply topically 60 mL 5 Active (DRYSOL) 20 % to affected 0 external area(s) at solutionIndications bedtime. : Hyperhidrosis albuterol HFA Inhale 1-2 Puffs 1 Each 0 Active (ProAir HFA) 90 by mouth every 6 1 mcg/actuation hours if needed. inhalerIndications: Bronchitis with bronchospasm fluticasone (50 mcg Daily as needed 0 Active per actuation) nasal solution (FLONASE) cyclobenzaprine Take 1-2 Tablets 20 tablet. 0 Active (FLEXERIL) 5 mg (5-10 mg) by 1 tabletIndications: mouth 3 times Acute bilateral low daily if needed back pain without for Muscle sciatica Spasm. levothyroxine Take 1 Tablet 90 Tablet 3 Ac tive (SYNTHROID) 88 mcg (88 mcg) by 1 tabletIndications: mouth before Postablative breakfast. hypothyroidism oxybutynin Take 1 Tablet (5 180 Tablet 3 A ctive (DITROPAN) 5 mg mg) by mouth 2 1 tabletIndications: times daily. Urge incontinence of urine QUEtiapine Take 3-4 Tablets 360 Tablet 3 A ctive (SEROQUEL) 100 mg (300-400 mg) by 2 tabletIndications: mouth at Episodic mood bedtime. disorder (HC), Anxiety disorder, unspecified type, Depression, unspecified depression type pantoprazole TAKE 1 TABLET BY 90 Tablet 3 Active (PROTONIX) 40 mg MOUTH EVERY DAY 2 delayed-release tabletIndications: Gastric reflux escitalopram TAKE 1 TABLET BY 90 Tablet 3 Active oxalate (LEXAPRO) MOUTH EVERY 2 20 mg MORNING tabletIndications: Depression with anxiety fluocinonide 0.05% Apply topically 120 g 0 Active topical (LIDEX) to affected 2 0.05 % area(s) 2 times creamIndications: daily. Acute eczema sodium chloride Use 2 sprays in 44 mL 0 Active (OCEAN) 0.65 % each nostril at 2 nasal least 3 times solutionIndications daily starting : Sinusitis tomorrow while awake until follow-up appointment. sodium As directed 3 50 Each 0 Active bicarb-sodium times daily. 2 chloride (NEILMED Gently rinse SINUS both nasal RINSE)Indications: cavities. Follow Sinusitis mixing instructions on box. sodium Gently place 1 50 Each 0 Activ e chloride-sodium rinse to both 2 bicarb (Neilmed nasal cavities 3 Sinus Rinse times daily. Complete) Follow mixing instructions on box buPROPion TAKE 1 TABLET BY 90 Tablet 0 Act christiana (WELLBUTRIN XL) 150 MOUTH EVERY DAY 2 mg Extended-Release IN THE MORNING tabletIndications: Obesity (BMI 30-39.9) QUEtiapine TAKE 1 TABLET BY 90 Tablet 3 Ac tive (SEROQUEL) 25 mg MOUTH ONCE DAILY 2 tabletIndications: IN THE MORNING. Episodic mood disorder (HC), Anxiety disorder, unspecified type, Depression, unspecified depression type spironolactone TAKE 1 TABLET BY 90 Tablet 1 Active (ALDACTONE) 50 mg MOUTH EVERY DAY 2 tabletIndications: Acne vulgaris, Hirsutism hydrocortisone 0 Activ e valerate (WESTCORT) 2 0.2 % ointment naltrexone (REVIA) Take 0.5 Tablets 15 Tablet 0 Active 50 mg (25 mg) by mouth 2 tabletIndications: once daily. Obesity (BMI 30-39.9) azelastine 137 Inhale 2 Sprays 30 mL 6 Active mcg/actuation into affected 2 (ASTELIN) nasal nostril(s) two sprayIndications: times daily. Non-seasonal allergic rhinitis, unspecified trigger, Nasal congestion cetirizine (ZyrTEC) Take 1 Tablet 30 Tablet 6 Active 10 mg (10 mg) by mouth 2 tabletIndications: once daily. Non-seasonal allergic rhinitis, unspecified trigger, Nasal congestion LORazepam (Ativan) Take 1 Tablet (1 30 Tablet 0 Active 1 mg mg) by mouth 2 tabletIndications: once daily if Episodic mood needed for disorder (HC), Anxiety. Anxiety disorder, unspecified type valACYclovir Take 2 Tablets 20 Tablet 1 Ac tive (VALTREX) 1 gram (2 g) by mouth 2 tabletIndications: two times daily. Cold sore semaglutide Inject 0.25 mg 2 mL 0 Act christiana (Wegovy) 0.25 subcutaneous 2 mg/0.5 mL once weekly. penIndications: Obesity (BMI 30-39.9) phentermine Take 1 Tablet 30 Tablet 0 Acti ve (ADIPEX-P) 37.5 mg (37.5 mg) by 2 tabletIndications: mouth once daily Obesity (BMI before a meal. 30-39.9) valACYclovir Take 2 Tablets 20 tablet. 1 D iscontinued (VALTREX) 1 gram (2 g) by mouth 2 1 022 (Reorder tabletIndications: times daily. (E-cancel not Cold sore sent)) LORazepam (Ativan) Take 1 Tablet (1 30 tablet. 0 10/31 Discontinued 1 mg mg) by mouth 2 022 (Reorde r tabletIndications: once daily if (E-cancel not Episodic mood needed for sent) ) disorder (HC), Anxiety. 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 Favor benign lipoma vs angiomyolipoma. Lung nodule < 6cm on CT 09/04/2019 Overview: Repeat test due 08/2020 Pulmonary nodules 09/01/2019 Overview: Noted on CT kidney stone protocol 09/01/19 20: Small pulmonary nodules as noted above measuring up to 5.5 mm in the lingula. Patient is high risk due to her history of breast cancer. Repeat CT recommended in 12 months. Mastitis 01/22/2018 Lateral epicondylitis of right elbow 01/05/2018 Overview: June 2017 injection, great benefit. December 2017: Repeat injection. 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 [employer]ARING [employer]/psychiatry/hc Bulge of lumbar disc without myelopathy 02/07/2015 Lumbar facet arthropathy 02/07/2015 Graves disease 12/17/2014 Lumbar myofascial pain 11/15/2014 Low back pain 02/08/2011 Anxiety state, unspecified 11/11/2010 Family history of malignant neoplasm of breast 011 Benign neoplasm of colon 04/19/2009 Overview: Colonoscopy 04/2009 polyps repeat in 1 ye ar Colonoscopy 03/2010 polyps repeat in 3 ye ars Colonoscopy 03/2013 polyps repeat in 3 ye ars Colonoscopy 12/2015 normal repeat in 5 y ears Colonoscopy 08/2020 multiple polyps, repe at in 3 years with propofol Unspecified asthma(493.90) 01/04/2008 Esophageal reflux 01/21/2007 Overview: EGD 03/2013 normal Unspecified episodic mood disorder 12/28/2006 Resolved Problems Problem Noted Date Resolved Date 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 Unknown if these are monoallelic or biallelic at this time. Flank pain, chronic 02/08/2011 01/31/2014 Flat wart 10/26/2008 01/31/2014 Diarrhea 07/27/2008 10/26/2008 Diarrhea 07/27/2008 01/31/2014 Diarrhea 01/21/2007 01/31/2014 Tobacco use disorder 01/17/2007 01/31/2014 Encounters Date Type Specialty Care Team Description 02/06/2022 Office Visit Chiara Das, Irasema ht (Start Lamar ); Refill Request 02/06/2022 Travel 01/30/2022 Orders Only Scanner 1 scan: (1-Ord) [facility], US UP PER EXTREMITY LT NO N VASC, 01/30/2022 01/30/2022 Orders Only Scanner 1 scan: (1-Ord) [facility], DU PIXENT INJECTIONS, 04/202101/30/2022 Orders Only Scanner 1 scan: (1-Ord) [place], XR HIP LT MIN 2 V, 01/30/2022 01/09/2022 Office Visit Christina Putnam PA Fat igue (Last month- concerned about thyroid levels) 01/09/2022 Travel 01/08/2022 Telephone Steven Chandler MD 12/13/2021 Refill Cody Dickerson Refil l Request (Cetirizine) 11/20/2021 Office Visit Cody Dickerson Reche ck (09/04/2021 Endoscopic Maxi llary Antrostomy, End oscopic Partial Ethmoid , /Septoplasty, a nd Turbinate Reduction) 11/20/2021 Travel from Last 3 Months Immunizations Name Administration Dates Next Due COVID-19 vaccine (Lateral SV 02/28/2021, 06/15/2020, , 30mcg/0.3mL) PF, V 05/25/2020 Influenza, IIV4 01/17/2020, 12/16/2018 Influenza, Injectable, Mdck, 11/18/2021, 11/19/2020 Quadrivalent, W/preservative Td (Age >=7 Years) 2012 Tdap 03/28/2010 Zoster (Shingrix-RZV, recombinant) 02/06/2022 Family History Medical History Relation Name Comments Cancer Father brain Heart Disease Father age unknown Cancer-breast Mother age age 48 Osteoporosis Mother Thyroid Disease Mother Grave's Anesthesia Problem No Family History Blood Disease No Family History Cancer-colon No Family History Cancer-ovarian No Family History Relation Name Status Comments Father Alive Half-Brother 1 Alive Half-Brother 2 Alive Mother Alive Social History Tobacco Use Types Packs/Day Years Used Date Smoking Tobacco: Some Days Cigarettes 0.3 33 S tarted: 03/01/1979 Smokeless Tobacco: Never Tobacco Cessation: Ready to Quit: Yes; C ounseling Given: Yes Alcohol Use Standard Drinks/Week Comments Not Currently 0 (1 standard drink = 0.6 oz pure alcoho l) socially Alcohol Habits Answer Date Recorded How often do you have a drink containing alcohol? Monthly or less 12/21/2018 How many drinks containing alcohol do you have on a 1 or 2 09/01/2019 typical day when you are drinking? How often do you have six or more drinks on one Less than mo nthly 09/02/2018 occasion? Sex Assigned at Date Recorded Not on file COVID-19 Exposure Response Date Recorded In the last 10 days, have you been in contact with No / Unsu re 02/06/2022 3:33 PM CONSULTING NETWORKING ENGINEER someone who was confirmed or suspected to have Coronavirus/COVID-19? Obstetrics History Para Term AB IAB SAB Ectopic Multiple Living Live Births 3 2 2 Date Outcome GA Total Labor/2nd/3rd Weight Sex Delivery Anes PTL Kacie A 1 A5 Name Clin Labor Para Para Last Filed Vital Signs Vital Sign Reading Time Taken Comments Blood Pressure 142/86 02/06/2022 3:47 PM CONSULTING NETWORKING ENGINEER Pulse 92 02/06/2022 3:47 PM CONSULTING NETWORKING ENGINEER Temperature 36.7 ??C (98.1 ??F) 09/22/2021 3:47 PM CDT Respiratory Rate 18 09/05/2021 9:19 AM CDT Oxygen Saturation 99% 02/06/2022 3:47 PM CONSULTING NETWORKING ENGINEER Inhaled Oxygen Concentration - - Weight 85.8 kg (189 lb 3.2 oz) 02/06/2022 3:47 PM CONSULTING NETWORKING ENGINEER Height 161.5 cm (5' 3.58) 02/06/2022 3:47 PM CONSULTING NETWORKING ENGINEER Body Mass Index 32.9 02/06/2022 3:47 PM CONSULTING NETWORKING ENGINEER Plan of Treatment Upcoming Encounters Date Type Specialty Care Team Description 02/19/2022 Appointment 02/19/2022 [facility] [address] [facility] [place] [address] (Wo rk) Health Maintenance Due Date Last Done Comments Pneumococcal series for age 19-64 01/12/1978 (1 - PCV) HIV for age 15-65 01/12/1987 Hepatitis C screening for age 1101/12/1990 18-79 COVID-19 vaccine series (5 - 04/25/2021 02/28/2021, 021, Booster for Pfizer series) 06/15/2020, Additiona l history exists Influenza for age 50-64 01/12/2022 01/17/2020, 12/16/2018 Tetanus booster 01/12/2022 2012, 03/28/2010 Mammogram for age 45-75 03/03/2022 03/03/2021, 09/23/2018, 09/15/2017, Additional history exists Zoster (shingles) series for age 0204/03/2022 02/06/2022 50+ (2 of 2) Depression screening for age 12+ 05/23/2022 05/23/2021, , 03/18/2021, Additional history exists BMI (ht and wt on same day) for 02/06/2023 02/06/2022, 07/0 03/2021, age 18+ 07/16/2021, Additional history exists Lipids for age 45-75 07/16/2026 07/16/2021, 10/25/2015, 10/20/2013, Additional history exists Colonoscopy through age 75 09/16/2030 09/16/2020, , 09/16/2020, Additional history exists Tdap Completed 03/28/2010 Medical Devices Implanted Type Area Paste Worker Device Shelf Model / Identifier Expiration Serial / Date Lot [id number] 520cc Inspira Cohesive Smooth Full Gel Left: [employer] - 09/26/2022 [id number]-[id number] / Implanted: Qty: 1 on 12/13/2017 by Tracy Duong MD at [facility] Breast Inamed [id number] / Explanted: at [facility] (Quantity not on file) Procedures Procedure Name Priority Date/Time Associated Diagnosis Comme nts SCAN-ULTRASOUND 01/30/2022 12:00 Results for this REPORT AM CONSULTING NETWORKING ENGINEER procedure are i n the results section. SCAN-RADIOLOGY 01/30/2022 12:00 Results f or this REPORT AM CONSULTING NETWORKING ENGINEER procedure are i n the results section. SCAN-OPERATIVE/PROCE 01/30/2022 12:00 Res ults for this DURE REPORT AM CONSULTING NETWORKING ENGINEER procedure are i n the results section. VITAMIN B12 Routine 01/09/2022 4:36 PM Fatigue, unspecified R esults for this CONSULTING NETWORKING ENGINEER type procedure are i n the results section. FERRITIN Routine 01/09/2022 4:36 PM Fatigue, unspecified R esults for this CONSULTING NETWORKING ENGINEER type procedure are i n the results section. IRON PLUS IRON Routine 01/09/2022 4:36 PM Fatigue, unspecified Results for this BINDING CAP CONSULTING NETWORKING ENGINEER type procedure are i n the results section. VITAMIN D 25 Routine 01/09/2022 4:36 PM Fatigue, unspecified R esults for this (DEFICIENCY) CONSULTING NETWORKING ENGINEER type procedure are i n the results section. HEMOGLOBIN Routine 01/09/2022 4:36 PM Fatigue, unspecified R esults for this CONSULTING NETWORKING ENGINEER type procedure are i n the results section. TSH WITH REFLEX Routine 01/09/2022 4:36 PM Fatigue, unspecifie d Results for this CONSULTING NETWORKING ENGINEER type procedure are i n the results section. from Last 3 Months Results SCAN-RADIOLOGY REPORT (01/30/2022 12:00 AM CONSULTING NETWORKING ENGINEER) Anatomical Region Laterality Modality Other Narrative This result has an attachment that is no t available. Scanner OTHER SCAN-OPERATIVE/PROCEDURE REPORT (01/30/2022 12:00 AM CONSULTING NETWORKING ENGINEER) Narrative This result has an attachment that is no t available. Scanner OTHER SCAN-ULTRASOUND REPORT (01/30/2022 12:00 AM CONSULTING NETWORKING ENGINEER) Anatomical Region Laterality Modality Other Narrative This result has an attachment that is no t available. Scanner OTHER TSH WITH REFLEX (01/09/2022 4:36 PM CONSULTING NETWORKING ENGINEER) athologist Signature TSH 2.96 0.35 - 4.94 01/10/2022 [facility] uIU/mL 9:01 PM CONSULTING NETWORKING ENGINEER LABORATORY-CENTR AL LABORATORY Specimen Anatomical Collection Method / Collection Time Recei adina Time (Source) Location / Volume Laterality Blood BLOOD SPECIMEN / Venipuncture / 01/09/2022 4:36 2021 4:37 Unknown Unknown PM CONSULTING NETWORKING ENGINEER PM CONSULTING NETWORKING ENGINEER Narrative [facility] LABORATORY-[facility] - 01/10/2022 9:01 PM CONSULTING NETWORKING ENGINEER In Adults, TSH values between 5.00 and 10.00 uIU/ml do not necessarily indicate the presence of Hyp othyroidism. Correlation with clinical findings such as presence of goiter and/or Thyroperoxidase (TPO) Antibody ma y be helpful. For more information please refer to ANITA 20 ; 291: [phone]. Christina BARNARD CHEMISTRY Performing Organization Address City/[facility]/ZIP Code Phon e Number [employer] [address] [employer] [address] LABORATORY-CENTRAL 2000 LABORATORY VITAMIN D 25 (DEFICIENCY) (01/09/2022 4:36 PM CONSULTING NETWORKING ENGINEER) athologist Signature VITAMIN D 47.6 30.0 - 01/10/2022 [facility] [employer] TOTAL 80.0 ng/mL 9:02 PM CONSULTING NETWORKING ENGINEER LABORATORY-[facility] LAB[facility] Specimen Anatomical Collection Method / Collection Time Recei adina Time (Source) Location / Volume Laterality Blood BLOOD SPECIMEN / Venipuncture / 01/09/2022 4:36 2021 4:37 Unknown Unknown PM CONSULTING NETWORKING ENGINEER PM CONSULTING NETWORKING ENGINEER Narrative [facility] - 01/10/2022 9:02 PM CONSULTING NETWORKING ENGINEER Deficiency: ? <20 ng/mL Insufficiency: ?20-29 ng/mL Sufficiency: ?30-80 ng/mL Possible Toxicity: ??>80 ng/mL Based on [facility] recommend ations Christina BARNARD SEND OUTS Performing Organization Address City/State/ZIP Code Phon e Number [facility] [address] [place] [address] LABORATORY-CENTRAL 2000 LABORATORY (ABNORMAL) IRON PLUS IRON BINDING CAP (01/09/2022 4:36 PM CONSULTING NETWORKING ENGINEER) Analysis Performed At Patho logist Time Signature IRON 44 25 - 156 01/10/2022 [facility] ug/dL 8:49 PM CONSULTING NETWORKING ENGINEER LABORATORY-GENET TRAL LABORATORY UIBC 373 01/10/2022 [facility] (UNSATURATED) 8:49 PM CONSULTING NETWORKING ENGINEER LABORATORY-GENET TRAL LABORATORY IRON BINDING 417 (H) 245 - 400 01/10/2022 [facility] ug/dL 8:49 PM CONSULTING NETWORKING ENGINEER LABORATORY-GENET TRAL LABORATORY IRON,% 11 (L) 20 - 55 % 01/10/2022 [facility] SATURATION 8:49 PM CONSULTING NETWORKING ENGINEER LABORATORY-GENET TRAL LABORATORY Specimen Anatomical Collection Method / Collection Time Recei adina Time (Source) Location / Volume Laterality Blood BLOOD SPECIMEN / Venipuncture / 01/09/2022 4:36 2021 4:37 Unknown Unknown PM CONSULTING NETWORKING ENGINEER PM CONSULTING NETWORKING ENGINEER Christina BARNARD CHEMISTRY Performing Organization Address City/State/ZIP Code Phon e Number [facility] [address] [place] [address] LABORATORY-CENTRAL 2000 LABORATORY HEMOGLOBIN (01/09/2022 4:36 PM CONSULTING NETWORKING ENGINEER) athologist [facility] HEMOGLOBIN 12.6 12.0 - 16.0 01/09/2022 [facility] g/dL 4:40 PM CONSULTING NETWORKING ENGINEER [facility] MCV 87 80 - 100 fL 01/09/2022 [facility] 4:40 PM CONSULTING NETWORKING ENGINEER [facility] Specimen Anatomical Collection Method / Collection Time Recei adina Time (Source) Location / Volume Laterality Blood BLOOD SPECIMEN / Venipuncture / 01/09/2022 4:36 2021 4:37 Unknown Unknown PM CONSULTING NETWORKING ENGINEER PM CONSULTING NETWORKING ENGINEER Christina BARNARD HEMATOLOGY Performing Organization Address City/State/ZIP Code Phon e Number [facility] [address] [place] [address] FERRITIN (01/09/2022 4:36 PM CONSULTING NETWORKING ENGINEER) athologist [facility] FERRITIN 54.7 15.0 - 01/10/2022 [facility] 205.0 ng/mL 9:01 PM CONSULTING NETWORKING ENGINEER LABORATORY-CENTR AL LABORATORY Specimen Anatomical Collection Method / Collection Time Recei adina Time (Source) Location / Volume Laterality Blood BLOOD SPECIMEN / Venipuncture / 01/09/2022 4:36 2021 4:37 Unknown Unknown PM CONSULTING NETWORKING ENGINEER PM CONSULTING NETWORKING ENGINEER Christina BARNARD CHEMISTRY Performing Organization Address City/State/ZIP Code Phon e Number [facility] [phone] [place] [address] LABORATORY-CENTRAL 2000 LABORATORY VITAMIN B12 (01/09/2022 4:36 PM CONSULTING NETWORKING ENGINEER) athologist Signature VITAMIN B12 781 586 - 436 01/11/2022 [facility] pg/mL 12:24 PM CONSULTING NETWORKING ENGINEER LABORATORY-CENT RAL LABORATORY Specimen Anatomical Collection Method / Collection Time Recei adina Time (Source) Location / Volume Laterality Blood BLOOD SPECIMEN / Venipuncture / 01/09/2022 4:36 2021 4:37 Unknown Unknown PM CONSULTING NETWORKING ENGINEER PM CONSULTING NETWORKING ENGINEER Christina BARNARD CHEMISTRY Performing Organization Address City/[facility]/ZIP [facility] Phon e Number [facility] [address] [place] [address] LABORATORY-CENTRAL 2000 LABORATORY from Last 3 Months Insurance Payer Benefit Plan / Subscriber ID Effective Dates Phone Addre ss Type Group WC WORKERS WC SENTRY [id number] 2016-Prese [address] [place] [address] WC WORKERS WC WORKERS COMP [id number] 2010-Prese [phone] [address] [place] [address] BLUE CROSS BLUE CROSS OF [id number] 2014-Presen [id number] [place] [address] BLUE CROSS BLUE CROSS OF [id number] 2020-[place] [address] [address] [place] [address] (Home) D[place] D[place] [phone] (Work) Julianna Borja Workers Comp Self [address] (Home) [place] [phone] (Work) Julianna Borja Workers Comp Self [address] (Home) [place] [phone] (Work) Advance Directives Latest Code Status on File Code Status Date Activated Date Inactivated Comments Full Code 09/04/2021 6:30 AM 09/05/2021 2:34 AM Question Answer Comments Code Status Discussion: Reviewed Preferences Code Status History Code Status Date Activated Date Inactivated Comments Full Code 01/05/2019 6:31 AM 01/06/2019 2:27 AM Question Answer Comments Code Status Discussion: Not Discussed Full Code 05/05/2018 5:57 AM 05/05/2018 2:29 PM Question Answer Comments Code Status Discussion: Not Discussed Full Code 01/22/2018 9:37 PM 01/25/2018 1:36 PM Question Answer Comments Code Status Discussion: Discussed Full Code 12/13/2017 8:33 AM 12/13/2017 8:18 PM Question Answer Comments Code Status Discussion: Not Discussed Care Teams Showroom Sales Consultant Relationship Specialty Start Date End Date Chiara Das MD PCP - General Family Practice 02/22/[address] [place] [address]
--- OUTSIDE RECORDS SUMMARY | 2022-02-10 21:01 | XMS_ITS | Encounter Summary ---
:1970 Author Organization [place] Address [address] [place] [address] Care Team Providers Name Role Phone Chiara Das Parth Primary Care Provider Reason for Visit [...] ABDOMEN [address] [place] [address] Phone: Referral ID Status Reason Start Date Expiration Date Visits Requ ested Visits Authorized [id number] 1 1 Encounter Details Date Type Department Care Team Description 07/31/2021 Anesthesia Event [facility] Gómez Santos MD [facility] [address] [facility] [address] [place] [address] [place], [place] [id number] (Wo rk) Anesthesia Record Procedure Summary Procedure Name Responsible Anesthesia Start Anesthesia Stop Time Anesthesiologist Time BILATERAL BREAST Dylan Santos MD 07/31/21 1216 07/31/21 1355 FAT GRAFTING - DONOR SITE ABDOMEN (Bilateral: Update) Events Date Time Event Comment 07/31/2021 1216 An Start 1218 An Start Data 1221 Initial Antibiotic (Started) 1222 MD Present 1223 AN REASSESS I attest that I have identified and re-evaluated the patient immediately before the induc tion of anesthesia and I am satisfied sona t the anesthetic plan is suitable for the patient's condition and procedure. The f irst vital signs recorded are pre - induction. CORY Mitchell 1225 An Induction 1227 An Intubation 1228 MD Present 1229 Antibiotic Complete 1241 AN INCISION 1340 MD Present 1345 AN Extubation All extubation c riteria met prior to removal. 1345 an stop data 1355 An Stop Electronically s igned by CORY Mitchell on July 31, 2021 1:55 PM Name Total dexamethasone 4mg/mL 4 mg dexmedetomidine (PRECEDEX) 4 mcg/mL in sodium chloride 0.9 % 100 mL 12 mcg infusion ePHEDrine 5 mg/mL 20 mg glycopyrrolate 0.2mg/mL 0.6 mg lidocaine 2% 100 mg neostigmine 1mg/mL 3 mg ondansetron 2mg/mL 4 mg phenylephrine (CARYN-SYNEPHRINE) injection 300 mcg propofol (DIPRIVAN) injection 10 mg/mL vial 200 mg propofol infusion (mcg/kg/min) 133.82 mg rocuronium 10mg/mL 30 mg ceFAZolin Sodium (ANCEF) injection 2 g 2 g fentaNYL (PF) (SUBLIMAZE) injection 50 mcg 100 mcg midazolam (VERSED) injection 1 mg 2 mg lactated ringers infusion 700 mL Agents Name NO HELIOX O2 N2O Air Exp Sevoflurane Exp Isoflurane Exp Desflurane Exp N2O Ins Sevoflurane Ins Isoflurane Ins Desflurane O2 Auxiliary Blood No blood administrations on file. Lines, Drains, and Airways Type Details Placement Removal Incision/Surgical Site 07/31/21; 1344; Left; 07/31/21 1344 by Breast; stab site Salome Goodson RN Incision/Surgical Site 07/31/21; 1344; Right; 07/31/21 1344 by Breast; stab site Salome Goodson RN Incision/Surgical Site 07/31/21; 1344; 07/31/21 1344 by Umbilicus; 2 stab Salome Goodson RN sites Peripheral IV 07/31/21; 1041; 22 G; 07/31/21 1041 by Reynoso, 04/22 1620 by Left, Posterior; Hand; ARLYN Hernandez Jodie, RN Chlorhexidine; None; Tolerated well ETT Placement Date: 07/31/21 1238 by 07/31/21 1345 b y 07/31/21; Placement Vanesa Barboza, [facility] mario alberto Barboza, Time: 1238 (created ROCK [place]ON APPRENTICE MUSHROOM PRESS OPERATOR [place] APPRENTICE MUSHROOM PRESS OPERATOR via procedure documentation); Mask Ventilation: 1; Induction Type: Intravenous; Ease of Intubation: Easy; Technique: Direct laryngoscopy; ETT Type: Single; Tube Size: 7 mm; DL Blade Size: Palma 2; Grade View: 1; Adjucts: Stylet; Placement Person: MUSHROOM PRESS OPERATOR; Attempts: 1; Depth: 21 cm documented in this encounter Social History Tobacco [...] have Coronavirus/COVID-19? documented as of this encounter OR Notes Anesthesia Postprocedure Evaluation - Dylan Santos MD - 07/31/2021 3:42 PM CDT Patient: Julianna Borja Procedure: Procedure(s): BILATERAL BREAST FAT GRAFTING - DONOR SITE ABDOMEN Anesthesia Type: General Note: Disposition: Outpatient Postop Pain Control: Uneventful Sign Out: See below. PONV: No Neuro/Psych: Uneventful Sign Out: Acceptable/Baseline neuro status Airway/Respiratory: Uneventful Sign Out: Acceptable/Baseline resp. status CV/Hemodynamics: Uneventful Sign Out: Acceptable CV status Other NRE: NONE DID A NON-ROUTINE EVENT OCCUR? No Event details/Postop Comments: Patient having post-surgical pain. IV & PO pain medications given, in addition to 25 mg of IM vistaril. Patient seems to be able to rest. Non-verbal pain scores within normal limits. Please call with questions. Last vitals: Vitals Value Taken Time BP 138/85 07/31/21 1515 Temp Pulse 84 07/31/21 1526 Resp 16 07/31/21 1526 SpO2 94 % 07/31/21 1526 Vitals shown include unvalidated device data. Electronically Signed By: Dylan Santos MD July 31, 2021 3:42 PM Anesthesia Procedure Notes - Vanesa Barboza APRN CRNA - 07/31/2021 12:37 PM CDTAssociated Order(s): Airway Airway Patient location during procedure: OR Staff - MUSHROOM PRESS OPERATOR: Vanesa Barboza APRN MUSHROOM PRESS OPERATOR Performed By: MUSHROOM PRESS OPERATOR Consent for Airway Urgency: elective Indications and Patient Condition Indications for airway management: tracee-procedural Induction type:intravenous Mask difficulty assessment: 1 - vent by mask Final Airway Details Final airway type: endotracheal airway Successful airway: ETT - single Endotracheal Airway Details ETT size (mm): 7.0 Cuffed: yes Successful intubation technique: direct laryngoscopy DL Blade Type: Palma 2 Grade View of Cords: 1 Adjucts: stylet Position: Right Measured from: gums/teeth Secured at (cm): 21 Bite block used: None Post intubation assessment Placement verified by: capnometry, equal breath sounds and chest rise Number of attempts at approach: 1 Number of other approaches attempted: 0 Secured with: pink tape Ease of procedure: easy Dentition: Intact Anesthesia Preprocedure Evaluation - Dylan Santos MD - 07/31/2021 10:46 AM CDT Anesthesia Pre-Procedure Evaluation Patient: Julianna Borja : 1970 Procedure : Procedure(s): BILATERAL BREAST FAT GRAFTING - DONOR SITE ABDOMEN Past Medical History: Diagnosis Date ??? Anxiety and depression ??? Bipolar 2 disorder (H) ??? Gastroesophageal reflux disease ??? Thyroid disease ??? Uncomplicated asthma Past Surgical History: Procedure Laterality Date ??? BIOPSY ??? CHOLECYSTECTOMY ??? COLONOSCOPY ??? HC REVISE BREAST RECONSTRUCTION ??? HYSTERECTOMY ??? MASTECTOMY SIMPLE BILATERAL ??? SALPINGOOPHORECTOMY ??? TUBAL LIGATION Allergies Allergen Reactions ??? Augmentin ??? Bactrim [Sulfamethoxazole W/Trimethoprim] Hives ??? Hydrocodone Nausea ??? Quinolones Hives ??? Sulfa Drugs Hives Social History Tobacco Use ??? Smoking status: Current Some Day Smoker ??? Smokeless tobacco: Current User Substance Use Topics ??? Alcohol use: Not on file Comment: rarely Wt Readings from Last 1 Encounters: 07/31/21 81.1 kg (178 lb 11.2 oz) Anesthesia Evaluation Pt has had prior anesthetic. No history of anesthetic complications ROS/MED HX ENT/Pulmonary: Comment: Sarcoidosis - lung nodule. Deviated septum. (+) asthma Neurologic: Comment: Lumbar pain Cardiovascular: - neg cardiovascular ROS METS/Exercise Tolerance: Hematologic: - neg hematologic ROS Musculoskeletal: - neg musculoskeletal ROS GI/Hepatic: (+) GERD, Renal/Genitourinary: - neg Renal ROS Endo: (+) thyroid problem, Psychiatric/Substance Use: Comment: Bipolar. (+) psychiatric history anxiety and depression Infectious Disease: - neg infectious disease ROS Malignancy: Other: Physical Exam Airway airway exam normal Mallampati: II TM distance: > 3 FB Neck ROM: full Respiratory Devices and Support Dental no notable dental history Cardiovascular cardiovascular exam normal Rhythm and rate: regular and normal Pulmonary pulmonary exam normal OUTSIDE LABS: CBC: No results found for: WBC, HGB, HCT, PLT BMP: No results found for: NA, POTASSIUM, CHLORIDE, CO2, BUN, CR, GLC COAGS: No results found for: PTT, INR, FIBR POC: No results found for: BGM, HCG, HCGS HEPATIC: No results found for: ALBUMIN, PROTTOTAL, ALT, AST, GGT, ALKPHOS, BILITOTAL, BILIDIRECT, RAFAT OTHER: No results found for: PH, LACT, A1C, JAMES, PHOS, MAG, LIPASE, AMYLASE, TSH, T4, T3, CRP, SED Anesthesia Plan ASA Status: 2 Anesthesia Type: General. - Airway: ETT Induction: Intravenous. Maintenance: Balanced. Consents Anesthesia Plan(s) and associated risks, benefits, and realistic alternatives discussed. Questions answered and patient/lead generation representative(s) expressed understanding. - Discussed: - Discussed with: Patient Postoperative Care Pain management: IV analgesics, Multi-modal analgesia. 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 Anesthesia Type: General Note: Oropharynx: oropharynx clear of all foreign objects Level of Consciousness: awake Oxygen Supplementation: face mask Level of Supplemental Oxygen (L/min / FiO2): 6 Independent Airway: airway patency satisfactory and stable Dentition: dentition unchanged Vital Signs Stable: post-procedure vital signs reviewed and stable Report to RN Given: handoff report given Patient transferred to: PACU Comments: Anesthesia Care Transfer Note Patient: Julianna Borja Transferred to: PACU with supplemental O2 Patient vital signs: stable Airway: none Monitors on, VSS, breathing spontaneously, report to RN Vanesa Green CRNA 07/31/2021 1:54 PM Handoff Report: Identifed the Patient, Identified the Reponsible Provider, Reviewed the pertinent medical history, Discussed the surgical course, Reviewed Intra-OP anesthesia mangement and issues during anesthesia, Set expectations for post-procedure period and Allowed opportunity for questions and acknowledgement of understanding Vitals: Vitals Value Taken Time BP Temp Pulse 91 07/31/21 1353 Resp 18 07/31/21 1353 SpO2 87 % 07/31/21 1353 Vitals shown include unvalidated device data. Electronically Signed By: Vanesa Barboza APRN CRNA July 31, 2021 1:54 PM documented in this encounter Plan of Treatment Not on filedocumented as of this encounter Procedures Procedure Name Priority Date/Time Associated Comments Diagnosis ANE AIRWAY ETT Routine 07/31/2021 12:37 Results f or this PERFORMABLE PM CDT procedure are i n the results section. documented in this encounter Results ANE AIRWAY ETT PERFORMABLE (07/31/2021 12:37 PM CDT) Narrative Vanesa Barboza APRN CRNA - 07/31/2021 12:37 PM CDT Vanesa Barboza APRN CRNA ? 07/31/2021 12:38 PM Airway ? Patient location during procedure : OR Staff - ? MUSHROOM PRESS OPERATOR: Vanesa Barboza APRN CRNA ? Performed By: MUSHROOM PRESS OPERATOR Consent for Airway ? Urgency: elective Indications and Patient Condition ? Indications for airway management : tracee-procedural ? Induction type:intravenous ? Mask difficulty assessment: 1 - v ent by mask Final Airway Details ? Final airway type: endotracheal a irway ? Successful airway: ETT - single Endotracheal Airway Details ? ETT size (mm): 7.0 ? Cuffed: yes ? Successful intubation technique: direct laryngoscopy ? DL Blade Type: Palma 2 ? Grade View of Cords: 1 ? Adjucts: stylet ? Position: Right ? Measured from: gums/teeth ? Secured at (cm): 21 ? Bite block used: None Post intubation assessment ? Placement verified by: capnometry , equal breath sounds and chest rise ? Number of attempts at approach: 1 ? Number of other approaches attemp ramsey: 0 ? Secured with: pink tape ? Ease of procedure: easy ? Dentition: Intact Dylan Santos MD [place] [facility] documented in this encounter Visit Diagnoses Not on filedocumented in this encounter Administered Medications Inactive Administered Medications - up to 3 most recent administrations Medication Order MAR Action Action Date Dose Rate Site ceFAZolin Sodium (ANCEF) injection Given 07/31/2021 12:21 PM CDT 2 g 2 g Routine, 2 g, Intravenous, PRE-OP/PRE-PROCEDURE, Starting on Modesta 07/31/21 at 0947, For 1 dose, Give first dose within 1 hour PRIOR to incision. If patient weight is greater than or equal to 120 kg increase dose to 3 g., Indications: Perioperative Pharmacoprophylaxis, Pre-procedure dexamethasone (DECADRON) injection Given 07/31/2021 12:32 PM CDT 4 mg Intravenous, PRN, Administer over 1 Minutes, Starting on Modesta 07/31/21 at 1232, Anesthesia Intra-op dexmedetomidine (PRECEDEX) 4 mcg/mL in sodium Bolus 1:35 PM CDT 4 mcg chloride 0.9 % 100 mL infusion Intravenous, CONTINUOUS PRN, Starting on Modesta 07/31/21 at 1244, Anesthesia Intra-op New Bag 07/31/2021 12:44 PM CDT 8 mcg ePHEDrine injection Given 07/31/2021 1:23 PM CDT 5 mg Intravenous, PRN, Starting on Modesta 07/31/21 at 1308, Anesthesia Intra-op Given 07/31/2021 1:17 PM CDT 5 mg Given 07/31/2021 1:08 PM CDT 10 mg fentaNYL (PF) (SUBLIMAZE) injection 50 m cg Given 07/31/2021 12:25 PM CDT 100 mcg 50 mcg, Intravenous, EVERY 1 MIN PRN, moderate to severe pain, for nerve block/line placement procedures, Starting on Modesta 07/31/21 at 1106, For 2 doses, Give in preop PRN for nerve block/line placement procedures. Also may give for preop pain - please call anesthesiologist for approval PRIOR to administration. IF patient receives Fentanyl, place patient on continuous pulse oximetry PRE OP. Max 100 mcg., Pre-procedure glycopyrrolate (ROBINUL) injection Given 07/31/2021 1:30 PM CDT 0.6 mg Intravenous, PRN, Administer over 1-2 Minutes, Starting on Modesta 07/31/21 at 1330, Anesthesia Intra-op lactated ringers infusion New Bag 07/31/2021 12:18 PM CDT at 10 mL/hr, Intravenous, CONTINUOUS, Pre-procedure, Starting on Modesta 07/31/21 at 1130, Until Modesta 07/31/21 at 1350 lidocaine 2% injection (MDV) Given 07/31/2021 12:25 PM CDT 100 mg Other, PRN, Starting on Modesta 07/31/21 at 1225, Anesthesia Intra-op midazolam (VERSED) injection 1 mg Given 07/31/2021 [...] Given 07/31/2021 11:11 AM CDT 1 mg neostigmine (PROSTIGMINE) injection Given 07/31/2021 1:30 PM CDT 3 mg Intravenous, PRN, Starting on Modesta 07/31/21 at 1330, Anesthesia Intra-op ondansetron (ZOFRAN) injection Given 07/31/2021 1:30 PM CDT 4 mg Intravenous, PRN, Administer over 2-5 Minutes, Starting on Modesta 07/31/21 at 1330, Anesthesia Intra-op phenylephrine (CARYN-SYNEPHRINE) injection Bolus 07/31/2021 1:23 PM CDT 100 mcg Intravenous, CONTINUOUS PRN, Starting on Modesta 07/31/21 at 1311, Anesthesia Intra-op Bolus 07/31/2021 1:17 PM CDT 100 mcg New Bag 07/31/2021 1:11 PM CDT 100 mcg propofol (DIPRIVAN) injection 10 mg/mL v ial Given 07/31/2021 1:36 PM CDT 10 mg Intravenous, PRN, Starting on Modesta 07/31/21 at 1225, Anesthesia Intra-op Given 07/31/2021 12:25 PM CDT 190 mg propofol (DIPRIVAN) New Bag 07/31/2021 12:31 PM 30 mcg/kg/min 14.5 98 mL/hr injection 10 mg/mL vial CDT Intravenous, CONTINUOUS PRN, Starting on Modesta 07/31/21 at 1231, Anesthesia Intra-op rocuronium injection Given 07/31/2021 12:25 PM CDT 30 mg Intravenous, PRN, Starting on Modesta 07/31/21 at 1225, Anesthesia Intra-op documented in this encounter Care Teams Decaler Relationship Specialty Start Date End Date Chiara Das PCP - General Family Medicine 07/31/21 [address] [place] [address] documented as of this encounter
--- OUTSIDE RECORDS SUMMARY | 2022-02-10 21:01 | XMS_ITS | Encounter Summary ---
:1970 Author Organization [place] Address [address] [place] [address] Care Team Providers Name Role Phone Chiara Das Primary Care Provider Reason for Visit Auth/Cert [...] - DONOR SITE ABDOMEN [address] [place] [address] Phone: Referral ID Status Reason Start Date Expiration Date Visits Requ ested Visits Authorized [id number] 1 1 Encounter Details Date Type Department Care Team Description 07/31/2021 [facility] Tracy Mejia Statu s post breast Encounter Glenn PORTER reconstruction PreOP/Phase II [facility] (Primary Dx) [address], [address] [facility] [address] [place] [address] [place] [id number] Social History Tobacco Use Types Packs/Day Years [...] work or school Do Not go to confucianist, child therapist centers, shopping, or other public places. Do [...] at home, please visit the CDCwebsite at https://www.cdc.gov/coronavirus/2019-ncov/about/raisk-pxpm-jttl.html For more options for care at [facility], please visit our website at [email or web address] If you have questions or concerns about your procedure, call Dr. Mejia at [phone]. documented in this encounter Medications at Time [...] 0 MG tablet daily fluticasone (FLONASE) 50 [place] 1 spray into 0 MCG/ACT nasal spray [...] are no significant changes Source Note - Scan, Provider - 07/29/2021 5:39 AM CDT documented [...] DRAINAGE TYPE: None. SURGEON: Tracy Mejia MD PATENT LEGAL ASSISTANT: LANE Hawkins PA-C, was present and scrubbed for the entire procedure and assisted with dissection, retraction and closure. There were no other qualified trainees or other assistants available and the presence of Brittney Whitfield PA-C was necessary due to inability to retract and dissect without an call center assistant. INDICATION: The patient is a 51-year-old female [...] 4 mm Ellen tip liposuction cannula. The [employer] system was used to process the fat [...] the entire case. Tracy Mejia MD MT: [facility] Name: DELORIS SEXTON MRN: [id number] Account: [id number] : 1970 Procedure Date: 07/31/2021 Document: [id number] Brief Op Note - Tracy Mejia MD - 07/31/2021 1:31 PM CDT [facility] Brief Operative Note Pre-operative diagnosis: Malignant neoplasm [...] Prim shonda Breast replaced by other means documented in this encounter Administered Medications Inactive [...] 75 mg/kg/day not to exceed 4 grams/day. fentaNYL (PF) (SUBLIMAZE) injection 25 m cg [...] 1221 (Given - Provider: Vanesa Barboza APRN INDUSTRIAL MAINTENANCE MANAGER) Routine, 2 g, Intravenous, PRE-OP/PRE-DE OCEDURE, Starting on Modesta 07/31/21 at 0947, [...] (New Bag - Provider: Vanesa Barboza APRN INDUSTRIAL MAINTENANCE MANAGER)1337 (Anesthesia Volume Adjustment - Provider: Vanesa Barboza APRN INDUSTRIAL MAINTENANCE MANAGER)1352 (Stopped - Provider: Vanesa Barboza APRN INDUSTRIAL MAINTENANCE MANAGER) at 10 mL/hr, Intravenous, CONTINUOUS, Pr e-procedure, [...] mcg (CANCELED) 1410 (Given - Provider: Violeta Looney RN)1417 (Given - Provider: Violeta Looney RN) 25 mcg, Intravenous, EVERY 5 MIN [...] mcg (CANCELED) 1225 (Given - Provider: Vanesa Barboza, MATERIAL MIXER INDUSTRIAL MAINTENANCE MANAGER) 50 mcg, Intravenous, EVERY 1 MIN PRN, [...] mg (CANCELED) 1422 (Given - Provider: Violeta Looney RN)1437 (Given - Provider: Violeta Looney, RN)1449 (Given - Provider: Violeta Looney RN)1500 (Given [...] mg (COMPLETED) 1111 (Given - Provider: Winnie Pitts, RN)1226 (Given - Provider: Vanesa Barboza APRN INDUSTRIAL MAINTENANCE MANAGER) 1 mg, Intravenous, EVERY 1 MIN PRN, [...] effects. documented in this encounter Care Teams Extractor Operator Helper Relationship Specialty Start Date End Date Chiara Das PCP - General Family Medicine 07/31/21 [address] [place] [address] documented as of this encounter
--- OUTSIDE RECORDS SUMMARY | 2022-02-10 21:01 | XMS_ITS | Encounter Summary ---
:1970 Author Organization [place] Address [facility] [place] [address] Care Team Providers Name Role Phone Unavailable Primary Care Provider Unavailable Encounter Details Date Type Department Care Team Description 07/23/2021 Orders Only [facility] Jae Mejia MD Encounter for [facility] OR [facility] screening for other [address] [facility] viral diseases D[place]EL [place] [id number] 410 (Primary Dx) [phone] DANIEL W[place]SON [id number] (Wo rk) Social History Tobacco Use Types Packs/Day Years Used Date Smoking Tobacco: Never Assessed Sex Assigned at Date Recorded Not on file documented as of this encounter Plan of Treatment Scheduled Orders Name Type Priority Associated Diagnoses Order S chedule Asymptomatic COVID-19 Lab Routine Encounter for gerry flor Expected: 07/23/2021 Virus (Coronavirus) by PCR for other sarthak l diseases (Approximate), Expires: 2022 documented as of this encounter Visit Diagnoses Diagnosis Encounter for screening for other viral diseases - Primary documented in this encounter
[2022-02-10 21:19] VITALS: TEMP 38.8
[2022-02-10] MEDS: KETOROLAC 30 MG/ML inj IM (21:19)
== END 2022-02-10 21:43 | disposition home or self-care (01) ==
PROVIDERS: Emergency Provider Family Medicine; PCP Family Medicine
DX: H66.93 Otitis media, unspecified, bilateral (principal); U07.1 COVID-19
CPT/HCPCS: 81001; 87086; 87502; 87634; 87635; 96372; 99283; 99284; J1885

== ENCOUNTER 2022-02-19 13:12 | Outpatient (CLI) | payer BC, SELFPAY ==
--- NOTE | 2022-02-19 14:00 | CRLHL7_ITS ---
For Patients: As a result of the Century Cures Act, medical imaging exams and procedure reports are released immediately into your electronic medical record. You may view this report before your referring provider. If you have questions, please contact your health care provider. INDICATION: Breast cancer. New left hip pain. Left axillary pain. Rule out metastatic disease. TECHNIQUE: Following IV injection of FDG with uptake of 60 minutes, noncontrast CT scan followed by a PET scan were acquired along the length of body from the head to the upper thighs. Noncontrast CT was used for anatomic localization and photon attenuation correction of the PET-CT scan. - Blood glucose level: 85. - FDG dose (mCi): 13.16. COMPARISON: None. FINDINGS: Head/Neck: Supraclavicular brown fat uptake. Otherwise no abnormal tracer uptake. - Chest: Paraspinal brown fat uptake. Otherwise no abnormal tracer uptake. - Background liver parenchyma with SUV mean of 2.7. Focal uptake in the sigmoid colon with SUV max of 5.1 measuring 0.8 cm. - Musculoskeletal: No tracer avid bone lesion. - CT findings: Bilateral breast implants. No pleural effusion or pneumothorax. Cholecystectomy. Hysterectomy. Mild bilateral maxillary sinus mucosal thickening. IMPRESSION : 1. No tracer avid metastases identified as clinically questioned. 2. Focal uptake in the sigmoid colon. Nonspecific but polyp/lesion is in the differential. Recommend colonoscopy if not recently performed. Dictated by Steven Mattson MD @ 02/25/2022 4:26:34 PM (Electronically Signed)
== END 2022-02-19 13:13 | disposition home or self-care (01) ==
LOC: RAD 13:12
PROVIDERS: PCP Family Medicine; Visit Provider Internal Medicine Medical Oncology
DX: C50.111 Malignant neoplasm of central portion of right female breast (principal); M79.622 Pain in left upper arm; M25.552 Pain in left hip
CPT/HCPCS: 78815; A9552

== ENCOUNTER 2022-03-23 09:40 | Outpatient (CLI) | payer BC, SELFPAY ==
--- NOTE | 2022-03-23 11:21 | W.ANESCHARGE ---
Anesthesia Charges Start Date/Time Anesthesia Start Date: 03/23/22 Anesthesia Start Time: 11:20 Stop Date/Time Anesthesia Stop Date: 03/23/22 Anesthesia Stop Time: 12:05 Summary Emergency: No
--- NOTE | 2022-03-23 12:10 | W.ANESCHARGE ---
Anesthesia Charges Start Date/Time Anesthesia Start Date: 03/23/22 Anesthesia Start Time: 11:20 Stop Date/Time Anesthesia Stop Date: 03/23/22 Anesthesia Stop Time: 12:05 Summary Emergency: No
== END 2022-03-23 09:41 | disposition home or self-care (01) ==
LOC: OP CLINIC 09:41
PROVIDERS: PCP Family Medicine; Visit Provider Internal Medicine Gastroenterology
DX: R93.3 Abnormal findings on diagnostic imaging of other parts of digestive tract (principal); K63.5 Polyp of colon; Z86.010 Personal history of colon polyps
CPT/HCPCS: 00811; 00812; 45385; 88305; J2250; J2405; J2704

== ENCOUNTER 2022-09-11 15:37 | Outpatient (CLI) | payer BC, SELFPAY ==
[2022-09-11 15:44] LABS: RBC Urine 0-2 (0-2); Squamous Epithelial Cell Urine Moderate (None-Few)
[2022-09-11 15:45] LABS: Bacteria Urine Few; Mucus Urine Few
== END 2022-09-11 15:38 | disposition home or self-care (01) ==
LOC: NFLDUCREF 15:38
PROVIDERS: PCP Family Medicine; Visit Provider Nurse Practitioner Family
DX: R30.0 Dysuria (principal)
CPT/HCPCS: 81015; 87086

== ENCOUNTER 2023-01-05 12:56 | Outpatient (CLI) | payer BC, SELFPAY | END 2023-01-05 12:57 | disposition home or self-care (01) | LOC: NFLDREF 01-07 07:27 | PROVIDERS: PCP Family Medicine; Referring Provider Family Medicine; Visit Provider Registered Nurse | DX: R30.0 Dysuria (principal); N39.0 Urinary tract infection, site not specified; R31.9 Hematuria, unspecified | CPT/HCPCS: 87086; 87186 ==

== ENCOUNTER 2023-02-04 11:10 | Outpatient (RCR) | payer BC, SELFPAY | END 2023-02-24 23:59 | disposition home or self-care (01) | LOC: CCIC 11:10 | PROVIDERS: PCP Family Medicine; Visit Provider Physician Assistant | DX: D05.11 Intraductal carcinoma in situ of right breast (principal); Z15.01 Genetic susceptibility to malignant neoplasm of breast; Z15.89 Genetic susceptibility to other disease; Z90.13 Acquired absence of bilateral breasts and nipples | CPT/HCPCS: 99212; 99214 ==

== ENCOUNTER 2023-03-22 11:41 | Outpatient (CLI) | payer BC, SELFPAY ==
--- OUTSIDE RECORDS SUMMARY | 2023-03-23 07:18 | XMS_ITS | Clinical Summary ---
Author Name Unknown Organization [facility] Address [address] [place] [id number] Care Team Providers Care Denture Contour Wire Specialist Name Role Phone Chiara Das Primary Care Provider [phone] Allergies Active Allergy Reactions Criticality Noted Date Comments Amoxicillin-Pot Clavulanate 07/31/19 22 Sulfamethoxazole-Trimethoprim Hives 2021 Hydrocodone Nausea 07/30/2021 Quinolones Hives 07/30/2021 Sulfa Antibiotics Hives 07/03/2021 Medications Medication Sig Dispensed Refills Start Date End Date Status albuterol (PROAIR HFA/PROVENTIL HFA/VENTOLIN HFA) 108 (90 Base) MCG/ACT inhaler Inhale 1-2 puffs into the lungs every 6 hours as needed for shortness of breath / dyspnea or wheezing 0 Active aluminum chloride (DRYSOL) 20 % external solution Apply topically At Bedtime 0 Active benzonatate (TESSALON) 100 MG capsule Take 100 mg by mouth 3 times daily as needed for cough 0 Active buPROPion (WELLBUTRIN XL) 150 MG 24 hr tablet Take 150 mg by mouth every morning 0 Active cyclobenzaprine (FLEXERIL) 5 MG tablet Take 5-10 mg by mouth 3 times daily as needed for muscle spasms 0 Active escitalopram (LEXAPRO) 20 MG tablet Take 20 mg by mouth daily 0 Active fluticasone (FLONASE) 50 MCG/ACT nasal spray [place] 1 spray into both nostrils daily as needed for rhinitis or allergies 0 Active levothyroxine (SYNTHROID/LEVOTHROID) 88 MCG tablet Take 88 mcg by mouth daily before breakfast 0 Active LORazepam (ATIVAN) 1 MG tablet Take 1 mg by mouth every 6 hours as needed for anxiety 0 Active naltrexone (DEPADE/REVIA) 50 MG tablet Take 25 mg by mouth daily (0.5 x 50 mg = 25 mg) 0 Active oxybutynin (DITROPAN) 5 MG tablet Take 5 mg by mouth 2 times daily 0 Active pantoprazole (PROTONIX) 40 MG EC tablet Take 40 mg by mouth daily 0 Active QUEtiapine (SEROQUEL) 100 MG tablet Take 300-400 mg by mouth At Bedtime 0 Active QUEtiapine (SEROQUEL) 25 MG tablet Take 25 mg by mouth every morning 0 Active spironolactone (ALDACTONE) 50 MG tablet Take 50 mg by mouth daily 0 Active valACYclovir (VALTREX) 1000 mg tablet Take 2,000 mg by mouth 2 times daily 0 Active senna-docusate (SENOKOT-S/PERICOLACE) 8.6-50 MG tabletIndications:Stat us post breast reconstruction Take 1-2 tablets by mouth 2 times daily 20 tablet 0 07/31/2021 Active oxyCODONE (ROXICODONE) 5 MG tabletIndications:Stat us post breast reconstruction Take 1-2 tablets (5-10 mg) by mouth every 4 hours as needed for moderate to severe pain 15 tablet 0 07/31/2021 Active Social History Tobacco Use Types Packs/Day Years Used Date Smoking Tobacco: Some Days Smokeless Tobacco: Current Alcohol Use Standard Drinks/Week Comments Not Asked 0 (1 standard drink = 0.6 oz pur e alcohol) rarely Adolescent Education Answer Date Record ed Getting School Help Needed Not on file 11/21 Sex and Gender Information Value Date Recorded Sex Assigned at Not on file Gender Identity Not on file Sexual Orientation Not on file Last Filed Vital Signs Vital Sign Reading Time Taken Comments Blood Pressure 137/85 07/31/2021 4:17 PM CDT Pulse 85 07/31/2021 4:17 PM CDT Temperature 36.6 ??C (97.9 ??F) 07/31/2021 4:17 PM CD T Respiratory Rate 16 07/31/2021 4:17 PM CDT Oxygen Saturation 98% 07/31/2021 4:17 PM CDT Inhaled Oxygen Concentration - - Weight 81.1 kg (178 lb 11.2 oz) 022 10:00 AM CDT Height 160 cm (5' 3) 07/31/2021 10:00 AM CDT Body Mass Index 31.66 07/31/2021 10:00 AM CDT Plan of Treatment Health Maintenance Due Date Last Done Comments ADVANCE CARE PLANNING 1972 ANNUAL REVIEW OF HM ORDERS 1972 CT COLONOGRAPHY 1972 FIT 1972 FLEX SIG 1972 HEPATITIS B IMMUNIZATION (1 of 3 - 3-dose series) 1972 TSH W/FREE T4 REFLEX 1972 YEARLY PREVENTIVE VISIT 1972 sDNA (Cologuard) 1972 Pneumococcal Vaccine: Pediatrics (0 to 5 Years) and At-Risk Patients (6 to 64 Years) (1 of 2 - PCV) 01/12/1978 COLONOSCOPY 01/12/1982 COLORECTAL CANCER SCREENING 01/12/1982 HIV SCREENING 01/12/1987 HEPATITIS C SCREENING 01/12/1990 PAP 01/12/1993 DTAP/TDAP/TD IMMUNIZATION (3 - Td or Tdap) 01/12/2022 2012, 03/28/2010 LUNG CANCER SCREENING 01/12/2022 ZOSTER IMMUNIZATION (1 of 2) 01/12/2022 COVID-19 Vaccine (4 - 2022-2 4 season) 2022 02/28/2021, 06/15/2020, 05/25/2020 INFLUENZA VACCINE (#1) 2022 , 01/17/2020, 12/16/2018 PHQ-2 (once per calendar year) 2023 LIPID 07/16/2026 07/16/2021 HPV IMMUNIZATION Aged Out No longer e ligible based on patient's age to complete this topic IPV IMMUNIZATION Aged Out No longer e ligible based on patient's age to complete this topic MENINGITIS IMMUNIZATION Aged Out No l onger eligible based on patient's age to complete this topic RSV MONOCLONAL ANTIBODY Aged Out No l onger eligible based on patient's age to complete this topic Care Teams Denture Contour Wire Specialist Relationship Specialty Start Date End Date Chiara Das [address] [place] [address] PCP - General Family Medicine 07/31/21
--- OUTSIDE RECORDS SUMMARY | 2023-03-23 07:19 | XMS_ITS | Referral Summary ---
Author Name Unknown Organization [facility] Address [address] [place] [id number] Care Team Providers Care Drilling Engineer Name Role Phone Chiara Das Primary Care Provider [phone] Allergies Active Allergy Reactions Criticality Noted Date [...] Active fluticasone (FLONASE) 50 MCG/ACT nasal spray [place] 1 spray into both nostrils daily as [...] 07/31/2021 10:00 AM CDT Plan of Treatment Not on file Care Teams Drilling Engineer Relationship Specialty Start Date End Date Chiara Das [address] [place] [address] PCP - General Family Medicine 07/31/21
--- OUTSIDE RECORDS SUMMARY | 2023-03-23 07:19 | XMS_ITS | Clinical Summary ---
Author Name Unknown Organization [facility] Address [place], [place] [address] Care Team Providers Care Jig Borer Name Role Phone Chiara Das MD Primary Care Provider Allergies Active Allergy Reactions Criticality Noted Date Comments Amoxicillin-Pot Clavulanate Yeast Infection Sulfamethoxazole-Trimethoprim Hives 2007 Ciprofloxacin Hives 02/20/2008 Hydrocodone Nausea Only 09/25/2014 Morphine Nausea Only 09/25/2014 Quinolones Hives 02/20/2008 Sulfa (Sulfonamide Antibiotics) Hives Medications Medication Sig Dispensed Refills Start Date End Date Status albuterol HFA (ProAir HFA) 90 mcg/actuation inhalerIndications :Bronchitis with bronchospasm Inhale 1-2 Puffs by mouth every 6 hours if needed. 1 Each 0 1 Active semaglutide, weight loss, (Wegovy) 2.4 mg/0.75 mL penIndications:Obe sity (BMI 30.0-34.9) Inject 2.4 mg subcutaneous once weekly. 3 mL 11 3 Active escitalopram oxalate (LEXAPRO) 20 mg tabletIndications: Depression with anxiety Take 1 Tablet (20 mg) by mouth every morning. 90 Tablet 3 3 Active QUEtiapine (SEROQUEL) 25 mg tabletIndications: Episodic mood disorder (HC),Anxiety disorder, unspecified type,Depression, unspecified depression type TAKE 1 TABLET BY MOUTH EVERY MORNING 90 Tablet 3 3 Active traZODone (DESYREL) 50 mg tabletIndications: Insomnia, idiopathic TAKE 1 TABLET BY MOUTH EVERY DAY AT BEDTIME NEEDED FOR SLEEP 90 Tablet 1 3 Active valACYclovir (VALTREX) 1 gram tabletIndications: Cold sore TAKE 2 TABLETS BY MOUTH TWICE A DAY 20 Tablet 1 3 Active oxybutynin (DITROPAN) 5 mg tabletIndications: Urge incontinence of urine TAKE 1 TABLET BY MOUTH TWO TIMES DAILY. 180 Tablet 0 4 Active QUEtiapine (SEROQUEL) 100 mg tabletIndications: Episodic mood disorder (HC),Anxiety disorder, unspecified type,Depression, unspecified depression type TAKE 3 TO 4 TABLETS BY MOUTH AT BEDTIME. 360 Tablet 3 4 Active pantoprazole (PROTONIX) 40 mg delayed-release tabletIndications: Gastric reflux TAKE 1 TABLET BY MOUTH EVERY DAY 90 Tablet 1 4 Active spironolactone (ALDACTONE) 50 mg tabletIndications: Acne vulgaris,Hirsutism TAKE 1 TABLET BY MOUTH EVERY DAY 90 Tablet 0 4 Active levothyroxine (SYNTHROID) 88 mcg tabletIndications: Postablative hypothyroidism TAKE 1 TABLET (88 MCG) BY MOUTH BEFORE BREAKFAST 90 Tablet 0 4 Active QUEtiapine (SEROQUEL) 100 mg tabletIndications: Episodic mood disorder (HC),Anxiety disorder, unspecified type,Depression, unspecified depression type TAKE 3 TO 4 TABLETS BY MOUTH AT BEDTIME. 360 Tablet 3 3 03/18/19 24 Discontinued oxybutynin (DITROPAN) 5 mg tabletIndications: Urge incontinence of urine Take 1 Tablet (5 mg) by mouth two times daily. 180 Tablet 3 3 03/18/19 24 Discontinued pantoprazole (PROTONIX) 40 mg delayed-release tabletIndications: Gastric reflux Take 1 Tablet (40 mg) by mouth once daily. 90 Tablet 2 3 03/18/19 24 Discontinued spironolactone (ALDACTONE) 50 mg tabletIndications: Acne vulgaris,Hirsutism TAKE 1 TABLET BY MOUTH EVERY DAY 90 Tablet 0 3 03/19/19 24 Discontinued levothyroxine (SYNTHROID) 88 mcg tabletIndications: Postablative hypothyroidism TAKE 1 TABLET (88 MCG) BY MOUTH BEFORE BREAKFAST. 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 Favor benign lipoma vs angiomyolipoma. Lung nodule < 6cm on CT 09/04/2019 Overview: Repeat test due 08/2020 Pulmonary nodules 09/01/2019 Overview: Noted on CT kidney stone protocol 09/01/2019: Small pulmonary nodules as noted above measuring [...] 03/16/2017 Overview: 03/16/17 signed .Gabby Aragon DNP, ELECTRICIAN [employer]ARD, ASSISTANT PLANT CONTROL OPERATOR/psychiatry/hc Bulge of lumbar disc without myelopathy 02/08/20 15 Lumbar facet arthropathy 02/07/2015 Graves disease 12/17/2014 Lumbar myofascial pain 11/15/2014 Low back pain 02/08/2011 Anxiety state, unspecified 11/11/2010 Family history of malignant neoplasm of breast 0 08/29/2010 Benign neoplasm of colon 04/19/2009 Overview: Colonoscopy 04/2009 polyps repeat in 1 year Colonoscopy 03/2010 polyps repeat in 3 years Colonoscopy 03/2013 polyps repeat in 3 years Colonoscopy 12/2015 normal repeat in 5 years Colonoscopy 08/2020 multiple polyps, repeat in 3 years with propofol Colonoscopy 03/2022 3-TA, repeat in 3 years, propofol Unspecified asthma(493.90) 01/04/2008 Esophageal reflux 01/21/2007 Overview: EGD 03/2013 normal Unspecified episodic mood disorder 12/28/2006 Resolved Problems Problem Noted Date Diagnosed Date Resolved Date 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 Unknown if these are monoallelic or biallelic at this time. Flank pain, chronic 02/08/2011 02/01/20 14 Flat wart 10/26/2008 01/31/2014 Diarrhea 07/27/2008 10/26/2008 Diarrhea 07/27/2008 01/31/2014 Diarrhea 01/21/2007 01/31/2014 Tobacco use disorder 01/17/2007 014 Encounters Date Type Department Care Team Description 03/18/2023 Refill [facility] [address] [place] [address] Chiara Das MD Refill Request (Spironolactone, Levothyroxine) 03/17/2023 Refill [facility] [address] [place] [address] Chiara Das MD Refill Request (Oxybutynin, Quetiapine, Pantoprazole) 02/05/2023 11:50 AM HEALTHCARE ECONOMICS MANAGER - 02/05/2023 11:59 PM HEALTHCARE ECONOMICS MANAGER Hospital Encounter [facility] [address] [place] [address] Steven Chandler MD Lung nodules; Abnormal chest CT; 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) 02/05/2023 Travel 01/01/2023 Telephone [facility] [address] [place] [id number] Steven Chandler MD Questions (APPOINTMENT REQUEST FOLLOWING CT ) from Last 3 Months Immunizations Name Administration Dates Next Due COVID-19 vaccine ([employer] 30mcg/0.3mL) PFCAITLIN 02/28/2021,06/15/2020,06/15/2020, 0 21 Influenza, IIV4 11/18/2022,01/17/2020,12/16/2018 Influenza, Injectable, Mdck, Quadrivalent, W/preservative 11/18/2021,11/19/2020 Td (Age >=7 Years) 2012 Tdap 11/18/2022,03/28/2010 Zoster (Shingrix-RZV, recombinant) 05/18/2022, Family History Medical History Relation Name Comments [...] Used Date Smoking Tobacco: Some Days Cigarettes 0.2 44.1 Started: 03/01/1979 Smokeless Tobacco: Never Tobacco Cessation:Ready to Q uit: Yes; Counseling Given: Not Answered Alcohol Use Standard Drinks/Week Comments Not Currently 0 (1 standard drink = 0.6 oz pur e alcohol) socially PHQ-2 Answer Date Recorded PHQ-2 TOTAL SCORE 5 05/23/2021 Social Connections Answer Date Recorded Frequency of Communication with Friends and Fami ly Not on file 02/07/2023 Financial Resource Strain Answer Date R ecorded Difficulty of Paying Living Expenses 3 02/06/2022 Difficulty of Paying Living Expenses Not on file 02/06/2022 Food Insecurity Answer Date Recorded Worried About Running Out of Food in the Last Ye ar 1 02/06/2022 Transportation Needs Answer Date Record ed Lack of Transportation (Medical) 1 02/06/2022 Housing Stability Answer Date Recorded Unable to Pay for Housing in the Last Year 1 02/06/2022 Sex and Gender Information Value Date Recorded Sex Assigned at Not on file Gender Identity Not on file Sexual Orientation Not on file Obstetrics History Para Term AB IAB SAB Ectopic Multiple Livin g Live Births 3 2 2 Date Outcome GA Total Labor Labor/2nd/3rd Weight Sex Delivery Anes PTL Kacie A1 A5 Name Cl in Para Para Last Filed Vital Signs Vital Sign Reading Time Taken Comments Blood Pressure 123/81 11/18/2022 3:46 PM CDT Pulse 79 11/18/2022 3:46 PM CDT Temperature 36.3 ??C (97.4 ??F) 07/28/2022 3:54 PM CD T Respiratory Rate 16 07/28/2022 3:54 PM CDT Oxygen Saturation 97% 11/18/2022 3:46 PM CDT Inhaled Oxygen Concentration - - Weight 78.5 kg (173 lb) 11/18/2022 3:46 PM CDT Height 162.6 cm (5' 4) 11/18/2022 3:46 PM CDT Body Mass Index 29.7 11/18/2022 3:46 PM CDT Plan of Treatment Health Maintenance Due Date Last Done Comments Pneumococcal series for age 6-64 (1 of 2 - PCV) 01/12/1978 Mammogram for age 45-75 03/03/2022 03/03/19, 09/23/2018, 09/15/2017, Additional history exists Depression screening for age 12+ 05/23/2022 05/23/2021, 03/28/2021, 03/18/2021, Additional history exists COVID-19 vaccine series (2022- season) 2022 02/28/2021, 06/15/2020, 06/15/2020, Additional history exists BMI (ht and wt on same day) for age 18+ 11/19/2023 11/18/2022, 07/31/2022, 05/18/2022, Additional history exists Colonoscopy through age 75 03/23/202503/23, 03/23/2022, 09/16/2020, Additional history exists Lipids for age 45-75 07/16/2026 07/16/2021, 10/25/2015, 10/20/2013, Additional history exists Tetanus booster 11/18/2032 11/18/2022, 12/30, 03/28/2010 Zoster (shingles) series for age 50+ Completed 05/18/2022, 02/06/2022 HIV for age 15-65 Completed 11/18/2022 Hepatitis C screening for ag e 18-79 Completed 11/18/2022 Influenza for age 50-64 Completed 11/19/19, 11/18/2021, 11/19/2020, Additional history exists Tdap Completed 11/18/2022, 03/28/2010 Medical Devices Implanted Type Area Cook Soup Device Identifier Shelf Expiration Date Model / Serial / Lot [id number] ast 520cc Inspira Cohesive Smooth Full Gel Implanted:Qty: 1 on 12/13/2017 by Tracy Mejia MD at [facility] Explanted:at [facility] (Quantity not on file) Right: Breast [employer] [place] 09/26/2022 [facility] [place] / [id number] / [id number] ast 520cc Inspira Cohesive Smooth Full Gel Implanted:Qty: 1 on 12/13/2017 by Tracy Mejia MD at [facility] Explanted:at [facility] (Quantity not on file) Left: Breast [employer] [place] 09/26/2022 [facility] [place] / [id number] / Procedures Procedure Name Priority Date/Time Associated Diagnosis Comments CT CHEST WO Routine 02/05/2023 11:58 AM HEALTHCARE ECONOMICS MANAGER Lung nodules Abnormal chest CT 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 ??Small groundglass opacities remain in both lungs overall decreased as compared to the previous examination most consistent with an inflammatory/reactive process. Narrative 02/05/2023 1:29 PM HEALTHCARE ECONOMICS MANAGER For Patients: As a result of the Cures Act, medical imaging exams and procedure reports are released immediately into your electronic medical record. You may view this report before your referring provider. If you have questions, please contact your health care provider. EXAM: CT CHEST WO LOCATION: [facility] MEDICAL IMAGING DATE: 02/05/2023 INDICATION: Lung Nodules Abnormal Chest Ct Respiratory Bronchiolitis Associated Interstitial Lung Disease (hc) COMPARISON: 02/19/2022 TECHNIQUE: CT chest without IV contrast. Multiplanar reformats were obtained. Dose reduction techniques were used. CONTRAST: None. FINDINGS: LUNGS AND PLEURA: There are several scattered small groundglass opacities measuring up to 4 mm in both upper lobes in different locations as compared to the previous examination overall the amount of involvement is decreased from previous. Small amount of groundglass infiltrate in the left lower lobe is also noted. MEDIASTINUM/AXILLAE: No mediastinal or hilar adenopathy. CORONARY ARTERY CALCIFICATION: Moderate. UPPER ABDOMEN: Cholecystectomy. MUSCULOSKELETAL: Bilateral breast implants. Procedure Note Garrett Knig MD - 02/05/2023 For Patients: As a result of the Cures Act, medical imagingexams and procedure reports are released immediately into your electronicmedical record. You may view this report before your referring provider.If you have questions, please contact your health care provider. EXAM: CT CHEST WO LOCATION: [facility] MEDICAL IMAGING DATE: 02/05/2023 INDICATION: Lung Nodules Abnormal Chest Ct Respiratory BronchiolitisAssociated Interstitial Lung Disease (hc) COMPARISON: 02/19/2022 TECHNIQUE: CT chest without IV contrast. Multiplanar reformats wereobtained. Dose reduction techniques were used. CONTRAST: None. FINDINGS: LUNGS AND PLEURA: There are several scattered small groundglass opacitiesmeasuring up to 4 mm in both upper lobes in different locations ascompared to the previous examination overall the amount of involvement isdecreased from previous. Small amount of groundglass infiltrate in theleft lower lobe is also noted. MEDIASTINUM/AXILLAE: No mediastinal or hilar adenopathy. CORONARY ARTERY CALCIFICATION: Moderate. UPPER ABDOMEN: Cholecystectomy. MUSCULOSKELETAL: Bilateral breast implants. IMPRESSION: 1. Small groundglass opacities remain in both lungs overall decreased ascompared to the previous examination most consistent with aninflammatory/reactive process. Steven Chandler MD CT from Last 3 Months Advance Directives Latest Code Status on File [...] Code Status Discussion: Not Discussed Care Teams Jig Borer Relationship Specialty Start Date End Date Chiara Das MD [address] [place] [address] PCP - General Family Practice 02/22/12
== END 2023-03-22 11:42 | disposition home or self-care (01) ==
LOC: NFLDREF 03-23 07:16
PROVIDERS: PCP Family Medicine; Referring Provider Family Medicine; Visit Provider Nurse Practitioner
DX: R30.0 Dysuria (principal); N30.00 Acute cystitis without hematuria; N30.01 Acute cystitis with hematuria
CPT/HCPCS: 87086; 87186

== ENCOUNTER 2023-08-02 15:22 | Outpatient (RCR) | payer OTHER, SELFPAY | END 2024-01-29 23:59 | disposition home or self-care (01) | LOC: CCIC 15:22 | PROVIDERS: PCP Family Medicine; Visit Provider Physician Assistant | DX: D05.11 Intraductal carcinoma in situ of right breast (principal); Z17.0 Estrogen receptor positive status [ER+]; Z15.01 Genetic susceptibility to malignant neoplasm of breast; Z90.13 Acquired absence of bilateral breasts and nipples | CPT/HCPCS: 99213; G0463 ==

== ENCOUNTER 2023-10-29 09:45 | Outpatient (CLI) | payer OTHER, SELFPAY ==
--- OUTSIDE RECORDS SUMMARY | 2023-10-29 09:47 | XMS_ITS | Clinical Summary ---
Author Organization [facility] Address [address] [place] [id number] Care Team Providers Care It Service Delivery Manager Name Role Phone Chiara Das MD Primary Care Provider [phone] Allergies Active Allergy Reactions Criticality Noted Date Comments Amoxicillin-Pot Clavulanate 07/31/19 Sulfamethoxazole-Trimethoprim Hives 2021 Hydrocodone Nausea 07/30/2021 Quinolones Hives 07/30/2021 Sulfa Antibiotics Hives 07/03/2021 Medications Medication Sig Dispensed Refills Start Date End Date Status albuterol (PROAIR HFA/PROVENTIL HFA/VENTOLIN HFA) 108 (90 Base) MCG/ACT inhaler Inhale 1-2 puffs into the lungs every 6 hours as needed for shortness of breath / dyspnea or wheezing Active aluminum chloride (DRYSOL) 20 % external solution Apply topically At Bedtime Active benzonatate (TESSALON) 100 MG capsule Take 100 mg by mouth 3 times daily as needed for cough Active buPROPion (WELLBUTRIN XL) 150 MG 24 hr tablet Take 150 mg by mouth every morning Active cyclobenzaprine (FLEXERIL) 5 MG tablet Take 5-10 mg by mouth 3 times daily as needed for muscle spasms Active escitalopram (LEXAPRO) 20 MG tablet Take 20 mg by mouth daily Active fluticasone (FLONASE) 50 MCG/ACT nasal spray Emeigh 1 spray into both nostrils daily as needed for rhinitis or allergies Active levothyroxine (SYNTHROID/LEVOTHROID) 88 MCG tablet Take 88 mcg by mouth daily before breakfast Active LORazepam (ATIVAN) 1 MG tablet Take 1 mg by mouth every 6 hours as needed for anxiety Active naltrexone (DEPADE/REVIA) 50 MG tablet Take 25 mg by mouth daily (0.5 x 50 mg = 25 mg) Active oxybutynin (DITROPAN) 5 MG tablet Take 5 mg by mouth 2 times daily Active pantoprazole (PROTONIX) 40 MG EC tablet Take 40 mg by mouth daily Active QUEtiapine (SEROQUEL) 100 MG tablet Take 300-400 mg by mouth At Bedtime Active QUEtiapine (SEROQUEL) 25 MG tablet Take 25 mg by mouth every morning Active spironolactone (ALDACTONE) 50 MG tablet Take 50 mg by mouth daily Active valACYclovir (VALTREX) 1000 mg tablet Take 2,000 mg by mouth 2 times daily Active senna-docusate (SENOKOT-S/PERICOLACE) 8.6-50 MG tabletIndications:Stat us post breast reconstruction Take 1-2 tablets by mouth 2 times daily 20 tablet 07/31/2021 Active oxyCODONE (ROXICODONE) 5 MG tabletIndications:Stat us post breast reconstruction Take 1-2 tablets (5-10 mg) by mouth every 4 hours as needed for moderate to severe pain 15 tablet 07/31/2021 Active Social History Tobacco Use Types [...] COLONOGRAPHY 1972 FIT 1972 FLEX SIG 1972 TSH W/FREE T4 REFLEX 1972 YEARLY PREVENTIVE VISIT 1972 sDNA (Cologuard) 1972 Pneumococcal Vaccine: Pediatrics (0 to 5 Years) and At-Risk Patients (6 to 64 Years) (1 of 2 - PCV) 01/12/1978 COLONOSCOPY 01/12/1982 COLORECTAL CANCER SCREENING 01/12/1982 HIV SCREENING 01/12/1987 HEPATITIS C SCREENING 01/12/1990 HEPATITIS B IMMUNIZATION (1 of 3 - 19+ 3-dose series) 01/12/1991 PAP 01/12/1993 DTAP/TDAP/TD IMMUNIZATION (3 - Td or Tdap) 01/12/2022 2012, 03/28/2010 LUNG CANCER SCREENING 01/12/2022 ZOSTER IMMUNIZATION (1 of 2) 01/12/2022 COVID-19 Vaccine (4 - 2022-2 4 season) 2022 02/28/2021, 06/15/2020, 05/25/2020 PHQ-2 (once per calendar year) 2023 INFLUENZA VACCINE (#1) 2023 , 01/17/2020, 12/16/2018 GLUCOSE 07/16/2024 07/16/2021, 09/04/2020, 08/15/2020 LIPID 07/16/2026 07/16/2021 HPV IMMUNIZATION Aged Out No longer e ligible based on patient's age to complete this topic MENINGITIS IMMUNIZATION Aged Out No l onger eligible based on patient's age to complete this topic RSV MONOCLONAL ANTIBODY Aged Out No l onger eligible based on patient's age to complete this topic Procedures Procedure Name Priority Date/Time Associated Diagnosis Comments GLUCOSE (EXTERNAL RESULT) Routine 07/16/2021 4:07 PM CDT LIPID PANEL (EXTERNAL RESULT) Routine 07/16/2021 4:07 PM CDT from Last 3 Months or Most Recently Relevant to Health Maintenance Results * (ABNORMAL) Lipid Panel (External Result) (07/16/2021 4:07 PM CDT) Cholesterol (External) 222(A) 100 - 199 mg/dL [facility] Triglycerides (External) 76 <150 mg/dL [facility] HDL Cholesterol (External) 62 >40 mg/dL [facility] LDL Cholesterol Calculated (External) 145(A) <=130 mg/dL [facility] Non HDL Cholesterol (External) 160(A) <145 mg/dL [facility] Blood 07/16/2021 4:07 PM CDT Narrative [facility] - 07/16/2021 4:07 PM CDT LAB RESULT [facility] C[facility] EVERYWHERE [facility] Provider Outside LAB - HIM EXTERNAL R ESULT Performing Organization Address City/[facility]/ZIP Co de Phone Number [facility] [address] * Glucose (External Result) (07/16/2021 4:07 PM CDT) Glucose (External) 83 65 - 100 mg/dL [facility] Blood 07/16/2021 4:07 PM CDT Narrative [facility] - 07/16/2021 4:07 PM CDT LAB RESULT [facility] Provider Outside LAB - HIM EXTERNAL R ESULT [facility] [address] from Last 3 Months or Most Recently Relevant to Health Maintenance Care Teams It Service Delivery Manager Relationship Specialty Start Date End Date Chiara Das MD [address] [place] [address] PCP - General Family Medicine 07/31/21
--- OUTSIDE RECORDS SUMMARY | 2023-10-29 09:47 | XMS_ITS | Clinical Summary ---
Author Organization [facility] Address [place], [place] [address] Care Team Providers Care Vegetable Cutter Name Role Phone Chiara Das MD Primary Care Provider Allergies Active Allergy Reactions Criticality Noted Date Comments Amoxicillin Yeast Infection Low 02/10/2022 Amoxicillin-Pot Clavulanate Yeast Infection Sulfamethoxazole-Trimethoprim Hives 2007 Ciprofloxacin Hives 02/20/2008 Clavulanic Acid Yeast Infection Low 02/10/2022 Hydrocodone Nausea Only 09/25/2014 Morphine Nausea Only 09/25/2014 Quinolones Hives 02/20/2008 Sulfa (Sulfonamide Antibiotics) Hives Trimethoprim Hives High 02/10/2022 Medications Medication Sig Dispensed Refills Start Date End Date Status Dupixent Pen 300 mg/2 mL subcutaneous PEN 04/29/2023 Active albuterol HFA (ProAir HFA) 90 mcg/actuation inhalerIndications:B ronchitis with bronchospasm Inhale 1-2 Puffs by mouth every 6 hours if needed for Shortness Of Breath or Wheezing. 1 Each 07/16/2023 Active escitalopram oxalate (LEXAPRO) 20 mg tabletIndications:De pression with anxiety Take 1 Tablet (20 mg) by mouth once daily in the morning. 90 Tablet 3 07/16/2023 Active oxybutynin (DITROPAN) 5 mg tabletIndications:Ur ge incontinence of urine Take 1 Tablet (5 mg) by mouth two times daily. 180 Tablet 3 07/16/2023 Active pantoprazole (PROTONIX) 40 mg delayed-release tabletIndications:Ga stric reflux Take 1 Tablet (40 mg) by mouth once daily. 90 Tablet 3 07/16/2023 Active QUEtiapine (SEROQUEL) 25 mg tabletIndications:Ep isodic mood disorder (HC),Anxiety disorder, unspecified type,Depression, unspecified depression type Take 1 Tablet (25 mg) by mouth once daily in the morning. 90 Tablet 3 07/16/2023 Active QUEtiapine (SEROQUEL) 100 mg tabletIndications:Ep isodic mood disorder (HC),Anxiety disorder, unspecified type,Depression, unspecified depression type Take 3-4 Tablets (300-400 mg) by mouth at bedtime. 360 Tablet 3 07/16/2023 Active semaglutide, weight loss, (Wegovy) 2.4 mg/0.75 mL penIndications:Obesi ty (BMI 30.0-34.9) Inject 2.4 mg subcutaneous once weekly. 9 mL 3 07/16/2023 Active spironolactone (ALDACTONE) 50 mg tabletIndications:Ac ne vulgaris,Hirsutism Take 1 Tablet (50 mg) by mouth once daily. 90 Tablet 3 07/16/2023 Active traZODone (DESYREL) 50 mg tabletIndications:In somnia, idiopathic Take 1 Tablet (50 mg) by mouth at bedtime if needed for Sleep. 90 Tablet 3 07/16/2023 Active valACYclovir (VALTREX) 1 gram tabletIndications:Co ld sore Take 2 Tablets (2 g) by mouth two times daily. 20 Tablet 1 07/16/2023 Active levothyroxine (SYNTHROID) 100 mcg tabletIndications:Po stablative hypothyroidism Take 1 Tablet (100 mcg) by mouth before breakfast. 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 Unknown if these are monoallelic or biallelic at this time. Flank pain, chronic 02/08/2011 02/01/20 14 Flat wart 10/26/2008 01/31/2014 Diarrhea 07/27/2008 10/26/2008 Diarrhea 07/27/2008 01/31/2014 Diarrhea 01/21/2007 01/31/2014 Tobacco use disorder 01/17/2007 014 Encounters Date Type Department Care Team Description 10/26/2023 Travel 10/01/2023 11:20 AM CDT Preop Visit [facility] [address] [place] [address] Chiara Das MD Preoperative Exam (10/13/23 - Fat grafting - [facility] - - Dr. Weinberg //10/29/23 - EDG - [facility] - Dr. Mcguire - ) 10/01/2023 Travel 08/27/2023 Telephone [facility] [address] [place] [address] Atilio Mcguire MD Pre Procedure (EGD) 07/31/2023 Refill [facility] [address] [place] [address] Chiara Das MD Refill Request (Wegovy) from Last 3 Months Immunizations Name Administration Dates Next Due COVID-19 vaccine ([employer] NTSumavision 30mcg/0.3mL) CAITLIN BOJORQUEZ 02/28/2021,06/15/2020,06/15/2020, 0 21 Influenza, IIV4 11/18/2022,01/17/2020,12/16/2018 Influenza, [...] Date Smoking Tobacco: Some Days Cigarettes 0.2 44.7 Started: 03/01/1979 Smokeless Tobacco: Never Tobacco Cessation:Ready to Q uit: No; Counseling Given: Not Answered Alcohol Use Standard Drinks/Week Comments Not Currently 0 (1 standard drink = 0.6 oz pur e alcohol) socially PHQ-2 Answer Date Recorded PHQ-2 TOTAL SCORE 3 07/16/2023 Social Connections Answer Date Recorded Frequency of [...] Outcome GA Total Labor Labor/2nd/3rd Weight Sex Type Anes PTL Kacie A1 A5 Name Clin Para Para Last Filed Vital Signs Vital Sign Reading Time Taken Comments Blood Pressure 111/72 10/01/2023 11:20 AM CDT Pulse 80 10/01/2023 11:20 AM CDT Temperature 36.3 ??C (97.4 ??F) 06/15/2023 5:12 PM CD T Respiratory Rate 16 06/15/2023 5:12 PM CDT Oxygen Saturation 99% 10/01/2023 11: 20 AM CDT Inhaled Oxygen Concentration - - Weight 79.3 kg (174 lb 12.8 oz) 024 11:20 AM CDT Height 162.6 cm (5' 4) 07/16/2023 9:00 AM CDT Body Mass Index 30 07/16/2023 9:00 AM CDT Plan of Treatment Upcoming Encounters Date Type Department Care Team (Late st Contact Info) Description 10/29/2023 10:15 AM CDT Procedure Only [facility] [address] [place] [phone] Atilio Mcguire MD [address] [place] [address] Arrived Health Maintenance Due Date Last Done Comments Pneumococcal series for age 6-64 (1 of 2 - PCV) 01/12/1978 Mammogram for age 45-75 03/03/2022 03/03/19, 09/23/2018, 09/15/2017, Additional history exists COVID-19 vaccine series (2022- season) 2022 02/28/2021, 06/15/2020, 06/15/2020, Additional history exists Influenza for age 50-64 10/31/2023 11/19/19, 11/18/2021, 11/19/2020, Additional history exists BMI (ht and wt on same day) for age 18+ 07/15/2024 07/16/2023, 11/18/2022, 07/31/2022, Additional history exists Depression screening for age 12+ 07/15/2024 07/16/2023, 05/23/2021, 03/28/2021, Additional history exists Colonoscopy through age 75 03/23/202503/23, 03/23/2022, 09/16/2020, Additional history exists Lipids for age 45-75 07/15/2028 07/16/2023, 07/16/2021, 10/25/2015, Additional history exists Tetanus booster 11/18/2032 11/18/2022, 12/30, 03/28/2010 Zoster (shingles) series for age 50+ Completed 05/18/2022, 02/06/2022 HIV for age 15-65 Completed 11/18/2022 Hepatitis C screening for ag e 18-79 Completed 11/18/2022 Tdap Completed 11/18/2022, 03/28/2010 Medical Devices Implanted Type Area Tack Picker Device Identifier Shelf Expiration Date Model / Serial / Lot [id number] 520cc Inspira Cohesive Smooth Full Gel Implanted:Qty: 1 on 12/13/2017 by Tracy Mejia MD at [facility] Explanted:at [facility] (Quantity not on file) Right: Breast [employer] - Inamed 09/26/2022 [facility]-520# / [id number] / [id number] ast 520cc Inspira Cohesive Smooth Full Gel Implanted:Qty: 1 on 12/13/2017 by Tracy Mejia MD at [facility] Explanted:at [facility] (Quantity not on file) Left: Breast [employer] - [employer]amed 09/26/2022 [facility]-520# / [id number] / Procedures Procedure Name Priority Date/Time Associated Diagnosis Comments ESOPHAGOGASTRODUODENOSCOPY Routine 10/28 8:35 AM CDT Gastric reflux BASIC METABOLIC PANEL Routine 10/01/2023 11:45 AM CDT Preop examination TSH Routine 10/01/2023 11:45 AM CDT Postablative hypothyroidism LIPID PANEL W REFLEX MEASURE D LDL Routine 07/16/2023 9:40 AM CDT Lipid screening ANTI HIV 1/2 Routine 11/18/2022 4:30 PM CDT Screening for HIV (human immunodeficiency virus) ANTI HCV Routine 11/18/2022 4:30 PM CDT Need for hepatitis C screening test COLONOSCOPY DIAGNOSTIC Routine 12:00 AM CHOCOLATE MAKER Polyp of colon, unspecified part of colon, unspecified type Abnormal PET scan of colon History of colon polyps XR MAMMO JESSIKA BILAT DIAG IMPLANT TARA 03/03/2021 12:13 PM CHOCOLATE MAKER Breast pain, right from Last 3 Months or Most Recently Relevant to Health Maintenance Results * TSH (10/01/2023 11:45 AM CDT) TSH 2.31 0.27 - 4.20 uIU/mL 10/01/2023 7:20 PM CDT [facility] Blood BLOOD SPECIMEN / Unknown Venipuncture / Unknown 10/01/2023 11:45 AM CDT 10/01/2023 11:45 AM CDT [facility] - 10/01/2023 7:20 PM CDT In Adults, TSH values between 5.00 and 10.00 uIU/ml do not necessarily indicate the presence of Hypothyroidism. Correlation with clinical findings such as presence of goiter and/or Thyroperoxidase (TPO) Antibody may be helpful. For more information please refer to ANITA 2004; 291: 228-238. Chiara Das MD CHEMISTRY [facility] [address] [place] [address], * (ABNORMAL) BASIC METABOLIC PANEL (10/01/2023 11:45 AM CDT) SODIUM 145 136 - 145 mmol/L 10/01/2023 7:20 PM CDT [facility] POTASSIUM 4.5 3.5 - 5.1 mmol/L 10/01/2023 7:20 PM CDT [facility] CHLORIDE 110(H) 98 - 107 mmol/L 10/01/2023 7:20 PM CDT [facility] CO2,TOTAL 24 22 - 29 mmol/L 10/01/2023 7:20 PM CDT [facility] ANION GAP 11 5 - 18 10/01/2023 7:20 PM CDT [facility] GLUCOSE 79 70 - 99 mg/dL 10/01/2023 7:20 PM T [facility] CALCIUM 9.5 8.6 - 10.0 mg/dL 10/01/2023 7:20 PM CDT [facility] BUN 17 6 - 20 mg/dL 10/01/2023 7:20 PM CDT [facility] CREATININE 0.76 0.50 - 0.90 mg/dL 10/01/2023 7:20 PM T [facility] BUN/CREAT RATIO 22(H) 10 - 20 4 7:20 PM CDT [facility] eGFR >90 >90 mL/min/1.7 3m2 10/01/2023 7:20 PM CDT [facility] Comment:As of 2021, eG FR is calculated by the CKD-EPI creatinine equation without race adjustment. ??eGFR can be influenced by muscle mass, exercise, and diet. ??The reported eGFR is an estimation only and is only applicable if the renal function is stable. Blood BLOOD SPECIMEN / Unknown Venipuncture / Unknown 10/01/2023 11:45 AM CDT 10/01/2023 11:45 AM CDT Chiara Das MD CHEMISTRY [facility] [address] [place] [address], * (ABNORMAL) LIPID PANEL W REFLEX MEASURED LDL (07/16/2023 9:40 AM CDT) CHOLESTEROL,TOTAL 206(H) 100 - 199 mg/dL 07/16/2023 5:24 PM CDT [facility] Comment: Cholesterol, Total Reference Ranges Desirable <200 mg/dL Borderline 200-239 mg/dL High >=240 mg/dL TRIGLYCERIDES 140 <150 mg/dL 07/16/2023 5:24 PM CDT [facility] HDL CHOLESTEROL 45 >40 mg/dL 4 5:24 PM CDT [facility] NON-HDL CHOLESTEROL 161(H) <145 mg/dl 07/16/2023 5:24 PM CDT [facility] CHOL/HDL RATIO 4.58(H) <4.50 07/16/2023 5:24 PM CDT [facility] LDL CHOLESTEROL 133(H) <=130 mg/dL 07/16/2023 5:24 PM CDT [facility] VLDL CHOLESTEROL 28 <=30 mg/dL 07/16/2023 5:24 PM CDT [facility] PROVIDER ORDERED STATUS RANDOM 07/16/2023 5:24 PM CDT [facility] Blood BLOOD SPECIMEN / Unknown Venipuncture / Unknown 07/16/2023 9:40 AM CDT 07/16/2023 9:40 AM CDT Chiara Das MD CHEMISTRY [facility] [address] [place] [address], * ANTI HCV (11/18/2022 4:30 PM CDT) HEPATITIS C ANTIBODY Non-Reacti ve Non-React christiana 11/20/2022 2:10 PM CDT [facility] Comment:Please note, per www .CDC.gov: If a patient is known to be at high risk of HCV infection, or is symptomatic, and the physician's suspicion of HCV infection is high, HCV RNA testing is often employed and is of diagnostic value, even after an initial negative anti-HCV test result. Blood BLOOD SPECIMEN / Unknown Venipuncture / Unknown 11/18/2022 4:30 PM CDT 11/18/2022 4:34 PM CDT Chiara Das MD SEND OUTS [facility] SENDOUT INTERNAL ZIP [address] [place] [address] * ANTI HIV 1/2 [85577.0] (11/18/2022 4:30 PM CDT) HIV-1/HIV-2 SCREEN Non-Reacti ve Non-Reacti ve 11/19/2022 2:11 PM CDT [facility] Comment:HIV-1 p24 and HIV-1/ HIV-2 Ab Not Detected. Blood BLOOD SPECIMEN / Unknown Venipuncture / Unknown 11/18/2022 4:30 PM CDT 11/18/2022 4:34 PM CDT Chiara Das MD SEND OUTS [facility] [address] [place] [address], [place] * COLONOSCOPY DIAGNOSTIC (03/23/2022 12:00 AM CHOCOLATE MAKER) Chiara Das MD GI PROCEDURE OR D * XR MAMMO JESSIKA BILAT DIAG IMPLANT (03/03/2021 12:13 PM CHOCOLATE MAKER) Anatomical Region Laterality Modality BREASTS, Breast Left, Breast Right Bilateral Mammography, Other 03/03/2021 1:07 PM CHOCOLATE MAKER Impressions 03/04/2021 7:42 AM CHOCOLATE MAKER Subtle waviness to the inferior border of the RIGHT breast implant. No other noted abnormality in either breast. Indeterminate if the patient's skin redness is due to a mild cellulitis since no soft tissue abnormalities are otherwise noted. If there is further need to evaluate the breast implants consider correlation with MRI. BI-RADS category 2: Benign. Dictated by: Osvaldo Rosen MD @03/03/2021 1:07:37 PM/STEPHANIE:[email or web address] PATIENTS: You will also receive a letter with your examination results in an easy to read format. ??If you have questions about your results, please contact your referring provider. Narrative 03/04/2021 7:42 AM CHOCOLATE MAKER For Patients: As a result of the Cures Act, medical imaging exams and procedure reports are released immediately into your electronic medical record. ??You may view this report before your referring provider. ?? If you have questions, please contact your health care provider. BILATERAL DIGITAL DIAGNOSTIC MAMMOGRAM WITH COMPUTER-AIDED DETECTION, TOMOSYNTHESIS AND IMPLANT DISPLACED VIEWS, 03/03/2021 RIGHT BREAST ULTRASOUND, 03/03/2021 INDICATION: RIGHT breast tenderness and slight deformity. Question implant rupture. TECHNIQUE: BILATERAL diagnostic mammogram and RIGHT breast ultrasound. BREAST COMPOSITION: The breasts are almost entirely fatty. FINDINGS: Both the RIGHT and LEFT breast implant appear to be intact. The implant on the RIGHT demonstrates minimal waviness to its inferior border. There is no evidence to suggest rupture. The implant on the LEFT has smooth border throughout. Sparse BILATERAL breast tissue is normal in appearance. There is no suspicious mass, microcalcifications or architectural distortion. RIGHT breast ultrasound demonstrates some minimal waviness to the inferior RIGHT breast implant however no other ultrasound abnormality was identified. Chiara Das MD MAMMO from Last 3 Months or Most Recently Relevant to Health Maintenance Advance Directives * Full Code (Latest Code Status on File) Date Activated Date Inactivated Comments 09/04/2021 6:30 AM 09/05/2021 2:34 AM Question Answer Comments Code Status Discussion: Reviewed Preferences * Full Code Date Activated Date Inactivated Comments 01/05/2019 6:31 AM 01/06/2019 2:27 AM Question Answer Comments Code Status Discussion: Not Discussed * Full Code Date Activated Date Inactivated Comments 05/05/2018 5:57 AM 05/05/2018 2:29 PM Question Answer Comments Code Status Discussion: Not Discussed * Full Code Date Activated Date Inactivated Comments 01/22/2018 9:37 PM 01/25/2018 1:36 PM Question Answer Comments Code Status Discussion: Discussed * Full Code Date Activated Date Inactivated Comments 12/13/2017 8:33 AM 12/13/2017 8:18 PM Question Answer Comments Code Status Discussion: Not Discussed Care Teams Vegetable Cutter Relationship Specialty Start Date End Date Chiara Das MD [address] [place] [address] PCP - General Family Practice 02/22/12
--- OUTSIDE RECORDS SUMMARY | 2023-10-29 09:47 | XMS_ITS | Referral Summary ---
Author Organization [facility] Address [address] [place] [id number] Care Team Providers Care Admeasurer Name Role Phone Chiara Das MD Primary [...] Active fluticasone (FLONASE) 50 MCG/ACT nasal spray [place] 1 spray into both nostrils daily as [...] CDT Plan of Treatment Not on file Procedures Procedure Name Priority Date/Time Associated Diagnosis Comments GLUCOSE (EXTERNAL RESULT) Routine 07/16/2021 4:07 PM CDT LIPID PANEL (EXTERNAL RESULT) Routine 07/16/2021 4:07 PM CDT from Last 3 Months or Most Recently Relevant to Health Maintenance Results * (ABNORMAL) Lipid Panel (External Result) (07/16/2021 4:07 PM CDT) Cholesterol (External) 222(A) 100 - 199 mg/dL [facility] Triglycerides (External) 76 <150 mg/dL [facility] HDL Cholesterol (External) 62 >40 mg/dL [facility] LDL Cholesterol Calculated (External) 145(A) <=130 mg/dL [facility] Non HDL Cholesterol (External) 160(A) <145 mg/dL [facility] Blood 07/16/2021 4:07 PM CDT Narrative [facility] - 07/16/2021 4:07 PM CDT LAB RESULT [facility] CARE EVERYWHERE [facility] Provider Outside LAB - HIM EXTERNAL R ESULT Performing Organization Address City/[facility]/ZIP Co de Phone Number [facility] [address] * Glucose (External Result) (07/16/2021 4:07 PM CDT) Glucose (External) 83 65 - 100 mg/dL [facility] Blood 07/16/2021 4:07 PM CDT Narrative [facility] - 07/16/2021 4:07 PM CDT LAB RESULT [facility] Provider Outside LAB - HIM EXTERNAL R ESULT [facility] [address] from Last 3 Months or Most Recently Relevant to Health Maintenance Care Teams Admeasurer Relationship Specialty Start Date End Date Chiara Das MD [address] [place] [address] PCP - General Family Medicine 07/31/21
--- NOTE | 2023-10-29 10:50 | W.ANESCHARGE ---
Anesthesia Charges Start Date/Time Anesthesia Start Date: 10/29/23 Anesthesia Start Time: 11:08 Stop Date/Time Anesthesia Stop Date: 10/29/23 Anesthesia Stop Time: 11:25
--- NOTE | 2023-10-29 11:30 | W.ANESCHARGE ---
Anesthesia Charges Start Date/Time Anesthesia Start Date: 10/29/23 Anesthesia Start Time: 11:08 Stop Date/Time Anesthesia Stop Date: 10/29/23 Anesthesia Stop Time: 11:25
== END 2023-10-29 09:46 | disposition home or self-care (01) ==
LOC: OP CLINIC 09:46
PROVIDERS: PCP Family Medicine; Visit Provider Internal Medicine Gastroenterology
DX: R13.10 Dysphagia, unspecified (principal); K21.9 Gastro-esophageal reflux disease without esophagitis; K31.89 Other diseases of stomach and duodenum; R10.13 Epigastric pain
CPT/HCPCS: 00731; 43239; 88305; J2704; J3490

== ENCOUNTER 2024-05-25 14:17 | Outpatient (RCR) | payer OTHER, SELFPAY | END 2024-11-21 23:59 | disposition home or self-care (01) | LOC: CCIC 14:17 | PROVIDERS: PCP Family Medicine; Visit Provider Internal Medicine Hematology & Oncology | DX: D05.11 Intraductal carcinoma in situ of right breast (principal); Z17.0 Estrogen receptor positive status [ER+]; Z15.01 Genetic susceptibility to malignant neoplasm of breast; Z90.13 Acquired absence of bilateral breasts and nipples | CPT/HCPCS: 99213; G0463 ==